=== PATIENT | female | born 1950 | race Caucasian/White ===

== ENCOUNTER 2016-10-27 21:45 | Observation (INO) ==
[2016-10-27] MEDS ORDERED: Aspirin 81 MG TAB.CHEW PO ONE (21:54)
[2016-10-27] MEDS: Nitroglycerin 0.4 MG TAB.SUBL SL ONE ×3 (22:05→22:32)
--- NOTE | 2016-10-27 22:16 | Emergency Department Note ---
Disposition Clinical Impression: Chest pain Qualifiers: Chest pain type: unspecified Qualified Code(s): R07.9 - Chest pain, unspecified Disposition: Admitted As Inpatient Condition: Good Referrals: NO,PCP [Non-Partnered Physician] - Forms: ED Satisfaction Letter Time of Disposition: 22:32 Chest Pain HPI - General Chief Complaint: ED Chest Pain Stated Complaint: chest pain Time Seen by Provider: 10/27/16 21:53 Source: patient, family Mode of arrival: ambulatory Limitations: no limitations Vital Signs Reviewed: Yes Nursing Notes Reviewed: Yes - History of Present Illness HPI Narrative: Patient presents to the emergency department with a four-hour history of left- sided chest pain radiating to her left arm that started from rest. Mild increased dyspnea from baseline. She denies other symptoms other than headache. No history of coronary artery disease. Pt complaint: chest pain Onset (ago): hour(s) Duration: constant Onset: during rest Pain Location: left chest Severity: moderate Severity scale (1-10): 8 Quality: aching Pain Radiation: LUE Improves with: nothing Worsens with: nothing Associated symptoms: Reports: other (Headache) Treatments prior to arrival chest pain: none - Related Data On Oral Contraceptives: No Home Medications Medication Instructions Recorded Confirmed GlipiZIDE [Glucotrol] 10 mg PO DAILY 07/15/15 10/27/16 Insulin Glargine,Hum.rec.anlog 28 unit SQ HS 07/15/15 10/27/16 [Lantus Solostar] Levothyroxine [Synthroid] 88 mcg PO DAILY 07/15/15 10/27/16 Lisinopril [Zestril] 10 mg PO DAILY 07/15/15 10/27/16 Ibuprofen [Motrin] 600 mg PO BID PRN 06/30/16 10/27/16 Ranitidine HCl [Zantac 75] 75 mg PO DAILY 10/27/16 10/27/16 Allergies Allergy/AdvReac Type Severity Reaction Status Date / Time codeine Allergy Mild Nausea Verified 10/27/16 21:46 All systems ED: reviewed and negative except as stated. Constitutional: Reports: as per HPI Eyes: Reports: as per HPI ENT ED: Reports: as per HPI Cardiovascular: Reports: chest pain Respiratory: Reports: dyspnea Gastrointestinal: Reports: as per HPI Genitourinary: Reports: as per HPI Musculoskeletal: Reports: as per HPI Integumentary: Reports: as per HPI Neurological: Reports: headache Psychiatric: Reports: as per HPI Endocrine: Reports: as per HPI Hematological/Lymphatic: Reports: as per HPI Allergic/Immunologic: Reports: as per HPI Chest Pain PMH - Past Medical History Medical history: Reports: arthritis, COPD, diabetes, GERD, hyperlipidemia, hypertension, osteoporosis, thyroid disease, other Surgical history: Reports: cataract, cholecystectomy, hysterectomy, orthopedic, other, JAY/BSO, thyroidectomy, other (Tubal ligation, bilateral.) Psychiatric history: Reports: no psych history 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 - Social History Smoking Status: Current every day smoker Alcohol use: Reports: none Drug use: Reports: none Physical Exam - General Limitations: no limitations General appearance: alert - Head Head exam: atraumatic - Eye Eye exam: Present: normal appearance - ENT ENT exam: normal exam - Neck Neck exam: Present: normal inspection, full ROM - Chest Chest inspection: Present: normal inspection, symmetric chest wall rise - Respiratory Respiratory exam: Present: other (Mild expiratory rhonchi) - Cardiovascular Cardiovascular exam: Present: regular rate, normal rhythm, normal heart sounds - Abdominal Exam Abdominal exam: Present: soft, Non-Tender - Rectal Exam Rectal exam: Present: deferred - Extremities Exam Extremities exam: Present: other (Chronic skin changes to her distal lower extremity is bilaterally) - Neurological Exam Neurological exam: Present: alert, oriented X3, CN II-XII intact - Psychiatric Psychiatric exam: Present: normal affect, normal mood - Skin Skin exam: Present: warm, dry, intact Course Course Narrative: Patient with a known history of COPD and diabetes presents the emergency department with 4 hours of left-sided chest pain radiating to her left upper extremity. EKG reveals no acute ST segment elevation. Workup including chest x -ray and labs initiated. - Reevaluation(s) Reevaluation #1: Dr. Blankenship accepts. Recs Lipitor and insulin coverage Vital Signs Temperature 98.9 F 10/27/16 21:47 Pulse Rate 106 10/27/16 21:47 Respiratory Rate 20 10/27/16 21:47 Blood Pressure 157/74 10/27/16 21:47 O2 Sat by Pulse Oximetry 95 10/27/16 21:47 Temperature 98.9 F 10/27/16 21:47 Pulse Rate 93 10/27/16 22:32 Respiratory Rate 16 10/27/16 22:32 Blood Pressure 113/57 10/27/16 22:32 O2 Sat by Pulse Oximetry 95 10/27/16 22:32 Oxygen Delivery Oxygen Delivery Room Air Chest Pain - Medical Records Medical records reviewed: Yes I reviewed the patient's medical records. - Lab Data Lab results reviewed: Yes I reviewed the patient's lab results. Result diagrams: 10/27/16 22:11 10/27/16 22:11 Lab Results 10/27/16 10/27/16 10/27/16 Range/Units 22:11 22:11 22:11 WBC 9.7 (4.3-11.1) K/mcL RBC 4.07 (3.82-4.97) M/mcL Hgb 11.6 (11.5-15.4) g/dL Hct 35.0 L (35.3-44.9) % MCV 86.0 (83.0-100.0) fL MCH 28.5 (28.0-33.3) pg MCHC 33.1 (31.6-35.5) g/dL RDW 13.4 (11.5-14.5) % Plt Count 274 (140-400) K/mcL MPV 9.1 L (9.4-12.4) fL Immature Gran % 0.4 (0-4) % Seg Neutrophils % 56.5 % Lymphocytes % 32.6 % Monocytes % 8.1 % Eosinophils % 1.6 % Basophils % 0.8 % Neutrophils # 5.5 (1.6-8.9) K/mcL Lymphocytes # 3.2 (0.6-4.6) K/mcL Monocytes # 0.8 (0.0-1.3) K/mcL Eosinophils # 0.2 (0.0-0.6) K/mcL Basophils # 0.1 (0.0-0.2) K/mcL PT 13.2 H (9.4-12.1) Seconds INR 1.2 APTT 29.9 (26.0-36.0) Seconds Sodium 135 L (136-145) mEq/L Potassium 3.8 (3.5-4.5) mEq/L Chloride 101 (98-109) mEq/L Carbon Dioxide 22 (19-29) mEq/L BUN 13 (7-20) mg/dL Creatinine 0.78 (0.57-1.11) mg/dL Est GFR ( Amer) > 60 (> 60) Est GFR (Non-Af Amer) > 60 (> 60) BUN/Creatinine Ratio 17 (6-26) Glucose 317 H (70-99) mg/dL Calculated Osmolality 292 (280-300) Calcium 8.5 L (8.6-10.8) mg/dL Troponin I (0-0.03) ng/mL 10/27/16 Range/Units 22:11 WBC (4.3-11.1) K/mcL RBC (3.82-4.97) M/mcL Hgb (11.5-15.4) g/dL Hct (35.3-44.9) % MCV (83.0-100.0) fL MCH (28.0-33.3) pg MCHC (31.6-35.5) g/dL RDW (11.5-14.5) % Plt Count (140-400) K/mcL MPV (9.4-12.4) fL Immature Gran % (0-4) % Seg Neutrophils % % Lymphocytes % % Monocytes % % Eosinophils % % Basophils % % Neutrophils # (1.6-8.9) K/mcL Lymphocytes # (0.6-4.6) K/mcL Monocytes # (0.0-1.3) K/mcL Eosinophils # (0.0-0.6) K/mcL Basophils # (0.0-0.2) K/mcL PT (9.4-12.1) Seconds INR APTT (26.0-36.0) Seconds Sodium (136-145) mEq/L Potassium (3.5-4.5) mEq/L Chloride (98-109) mEq/L Carbon Dioxide (19-29) mEq/L BUN (7-20) mg/dL Creatinine (0.57-1.11) mg/dL Est GFR ( Amer) (> 60) Est GFR (Non-Af Amer) (> 60) BUN/Creatinine Ratio (6-26) Glucose (70-99) mg/dL Calculated Osmolality (280-300) Calcium (8.6-10.8) mg/dL Troponin I 0.00 (0-0.03) ng/mL - Radiology Data Radiology results reviewed: Yes I reviewed the patient's radiology results. - EKG Data EKG attestation: Yes I reviewed and interpreted this EKG. EKG results narrative: Normal sinus rhythm 99 bpm [place] 151 QRS 94 QT/QTC 331/387. No acute ST segment elevation. Heart Score - Score History: Moderately Suspicious EKG: Normal Age: 45-65 Risk Factors: 1-2 risk factors Troponin: Less than normal limit HEART Score Total: 3
[2016-10-27 22:18] LABS: Hemoglobin 11.6 g/dL (11.5-15.4); Immature Granulocytes % 0.4 % (0-4); Lymphocytes % 32.6 %; Mean Corpuscular HGB Conc 33.1 g/dL (31.6-35.5); Mean Corpuscular Hemoglobin 28.5 pg (28.0-33.3); Mean Platelet Volume 9.1 fL (9.4-12.4); Monocytes % 8.1 %; Platelet Count 274 K/mcL (140-400); Red Blood Count 4.07 M/mcL (3.82-4.97); Red Cell Distribution Width 13.4 % (11.5-14.5); Segmented Neutrophils % 56.5 %
[2016-10-27 22:19] LABS: Basophils # 0.1 K/mcL (0.0-0.2); Basophils % 0.8 %; Eosinophils # 0.2 K/mcL (0.0-0.6); Eosinophils % 1.6 %; Lymphocytes # 3.2 K/mcL (0.6-4.6); Monocytes # 0.8 K/mcL (0.0-1.3); Neutrophils # 5.5 K/mcL (1.6-8.9)
[2016-10-27 22:25] LABS: INR 1.2; Prothrombin Time 13.2 Seconds (9.4-12.1)
[2016-10-27 22:28] LABS: Activated Partial Thrombo Time 29.9 Seconds (26.0-36.0)
[2016-10-27 22:30] LABS: BUN/Creatinine Ratio 17 (6-26); Blood Urea Nitrogen 13 mg/dL (7-20); Calcium 8.5 mg/dL (8.6-10.8); Carbon Dioxide 22 mEq/L (19-29); Chloride 101 mEq/L (98-109); Glucose 317 mg/dL (70-99); Osmolality,Calculated 292 (280-300); Potassium 3.8 mEq/L (3.5-4.5); Sodium 135 mEq/L (136-145); eGFR For African Americans > 60 (> 60); eGFR For Non-African Americans > 60 (> 60)
[2016-10-27] MEDS ORDERED: Insulin LISPRO 300 UNITS/3 ML VIAL SQ ONE (22:59)
[2016-10-27 23:56] VITALS: BP 133/70
--- NOTE | 2016-10-28 01:39 | Discharge Summary ---
Date of Encounter: 10/28/16 Time of Encounter: 01:05 - Discharge Diagnosis (1) Acute chest wall pain Priority: Primary Status: Acute - Discharge Medications Home Medications: GlipiZIDE [Glucotrol] 10 mg PO DAILY 07/15/15 [History] Insulin Glargine,Hum.rec.anlog [Lantus Solostar] 28 unit SQ HS 07/15/15 [History ] Levothyroxine [Synthroid] 88 mcg PO DAILY 07/15/15 [History] Lisinopril [Zestril] 10 mg PO DAILY 07/15/15 [History] Ibuprofen [Motrin] 600 mg PO BID PRN 06/30/16 [History] Ranitidine HCl [Zantac 75] 75 mg PO DAILY 10/27/16 [History] Allergies/Adverse Reactions: Allergies codeine Allergy (Mild, Verified 10/27/16 21:46) Nausea Date of admission: 10/27/16 23:12 Primary care physician: Jarrett Hickman MD Consults: Jessie. Discharging clinician: Travis Roldan Anticipated date of discharge: 10/28/16 - Patient Status Disposition: Home, Self-Care Condition: Good Overall status at discharge: patient is back to baseline - Discharge Instructions Instructions: Chest Pain (DC) Follow Up With: Jarrett Hickman MD [Primary Care Provider] - - Diet and Activity Activity: resume usual activities as tolerated Diet: low fat, low cholesterol, low salt diet Hospital course: Ms. Nava is a 65 year old female - Time Spent with Patient Total time spent providing and/or coordinating discharge services: - Constitutional Vitals: Temp Pulse Resp BP Pulse Ox 97.6 F 81 17 133/70 96 10/27/16 23:56 10/27/16 23:56 10/27/16 23:56 10/27/16 23:56 10/27/16 23:56
--- NOTE | 2016-10-28 01:40 | Internal Medicine Consult Note ---
Date of Encounter: 10/28/16 Time of Encounter: 01:15 Internal Medicine - CN: HPI - Data of Consult Patient: new to practice Consult date: 10/28/16 Requesting Physician: Nettie Larose - Consult Narrative Reason for consult: chest pain History of present illness: Ms. Nvaa is a 65 year old female with medical history significant for COPD/ emphysema, musculoskelteal chest with a non-ischemic cardiac work-up presents after a development of chest pain and headache at about 6:00pm yesterday. The pain was substernal, and left -sdied and radiated to her left shoulder and inner part of her left upper arm. The pain does cause mild dyspnea, but she says it is more out of fear. She has baseline dypsnea form COPD EMPHYSEMA. No cough, no diaphoresis, dizziness or palpitation, no associated nausea or vomiting. The pain has been intermittent. It is aggravated by deep breathing, and she subconsciously hold her breat out of fear of not aggravating the pain. She was worked up in December 2015 with CXR, EKG, 2D ECHO and a non-ischemic stress test. She thinks the pain is like it felt that time. She has no history of CAD. She is DNRCCA as per discussion, she nominates her , Kenrick Nava ([phone], ) as her NOK/POA. 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 ROS: A 10-point ROS was performed, positives and relevant negatives are detailed , system-symptoms not mentioned are assumed negative unless otherwise stated. Vital Signs Temperature 98.9 F 10/27/16 21:47 Pulse Rate 106 10/27/16 21:47 Respiratory Rate 20 10/27/16 21:47 Blood Pressure 157/74 10/27/16 21:47 O2 Sat by Pulse Oximetry 95 10/27/16 21:47 Temperature 98.9 F 10/27/16 21:47 Pulse Rate 93 10/27/16 22:32 Respiratory Rate 16 10/27/16 22:32 Blood Pressure 113/57 10/27/16 22:32 O2 Sat by Pulse Oximetry 95 10/27/16 22:32 O/E: Not in distress, not pale, anicteric, afebrile,acyanotic, non-ill, non- toxic looking. HEENT: Trachea is central, no cervical or jugular lymphadenopathy Chest: CTAB. Tenderness over the left chest wall underneath breast. Pain reproducible by palpation and deep inspiration, most tender in the mid clavicualar area over the 4th rib. Heart:rrr, hs1/2 Abdomen: non-distended,soft, non-tender, no masses. 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 Extremities: no pedal normal pedal pulses, no calf tenderness SKIN: No active skin lesion Lab Results 10/27/16 10/27/16 10/27/16 Range/Units 22:11 22:11 22:11 WBC 9.7 (4.3-11.1) K/mcL RBC 4.07 (3.82-4.97) M/mcL Hgb 11.6 (11.5-15.4) g/dL Hct 35.0 L (35.3-44.9) % MCV 86.0 (83.0-100.0) fL MCH 28.5 (28.0-33.3) pg MCHC 33.1 (31.6-35.5) g/dL RDW 13.4 (11.5-14.5) % Plt Count 274 (140-400) K/mcL MPV 9.1 L (9.4-12.4) fL Immature Gran % 0.4 (0-4) % Seg Neutrophils % 56.5 % Lymphocytes % 32.6 % Monocytes % 8.1 % Eosinophils % 1.6 % Basophils % 0.8 % Neutrophils # 5.5 (1.6-8.9) K/mcL Lymphocytes # 3.2 (0.6-4.6) K/mcL Monocytes # 0.8 (0.0-1.3) K/mcL Eosinophils # 0.2 (0.0-0.6) K/mcL Basophils # 0.1 (0.0-0.2) K/mcL PT 13.2 H (9.4-12.1) Seconds INR 1.2 APTT 29.9 (26.0-36.0) Seconds Sodium 135 L (136-145) mEq/L Potassium 3.8 (3.5-4.5) mEq/L Chloride 101 (98-109) mEq/L Carbon Dioxide 22 (19-29) mEq/L BUN 13 (7-20) mg/dL Creatinine 0.78 (0.57-1.11) mg/dL Est GFR ( Amer) > 60 (> 60) Est GFR (Non-Af Amer) > 60 (> 60) BUN/Creatinine Ratio 17 (6-26) Glucose 317 H (70-99) mg/dL Calculated Osmolality 292 (280-300) Calcium 8.5 L (8.6-10.8) mg/dL Troponin I (0-0.03) ng/mL 10/27/16 Range/Units 22:11 WBC (4.3-11.1) K/mcL RBC (3.82-4.97) M/mcL Hgb (11.5-15.4) g/dL Hct (35.3-44.9) % MCV (83.0-100.0) fL MCH (28.0-33.3) pg MCHC (31.6-35.5) g/dL RDW (11.5-14.5) % Plt Count (140-400) K/mcL MPV (9.4-12.4) fL Immature Gran % (0-4) % Seg Neutrophils % % Lymphocytes % % Monocytes % % Eosinophils % % Basophils % % Neutrophils # (1.6-8.9) K/mcL Lymphocytes # (0.6-4.6) K/mcL Monocytes # (0.0-1.3) K/mcL Eosinophils # (0.0-0.6) K/mcL Basophils # (0.0-0.2) K/mcL PT (9.4-12.1) Seconds INR APTT (26.0-36.0) Seconds Sodium (136-145) mEq/L Potassium (3.5-4.5) mEq/L Chloride (98-109) mEq/L Carbon Dioxide (19-29) mEq/L BUN (7-20) mg/dL Creatinine (0.57-1.11) mg/dL Est GFR ( Amer) (> 60) Est GFR (Non-Af Amer) (> 60) BUN/Creatinine Ratio (6-26) Glucose (70-99) mg/dL Calculated Osmolality (280-300) Calcium (8.6-10.8) mg/dL Troponin I 0.00 (0-0.03) ng/mL EKG: Normal sinus rhythm 99 bpm normal intervals, No acute ST segment elevation or depression. CXR: No acute cardiopulmonary process. IMP Musculoskeletal chest pain (favor pectoral muscle pain over costocondritis), even much less likely mastalgia of left breast PLAN NSAIDs, she takes Ibuprofen already She has an appointment for mammogram scheduling on 11/06/2016 F/U with PCP. Discharge home. Past Med Surg Social Fam HX - Past Medical History Medical history: arthritis, COPD, diabetes, GERD, hyperlipidemia, hypertension, osteoporosis, thyroid disease, other Psychiatric history: no psych history - Past Surgical History Surgical History: cataract, cholecystectomy, hysterectomy, orthopedic, other, JAY/BSO, thyroidectomy, other (Tubal ligation, bilateral.) - Social History Smoking Status: Current every day smoker Smokeless Tobacco Status: No Alcohol use: none Drug use: none - Family History Father Hx Family Cardiac Disorders: Yes ([place], HTN) Hx Family Respiratory Disorders: Yes (Emphysema) Hx Family Cancer: No Hx Family GI Disorders: No Hx Family Endocrine Disorder: Yes (DM) Hx Family Neuromuscular Disorders: No Hx Family Neurologic Disorders: No Hx Family HEENT Disorders: No Hx Family Autoimmune Disorders: No Internal Medicine - CN: Meds GlipiZIDE [Glucotrol] 10 mg PO DAILY 07/15/15 [History] Insulin Glargine,Hum.rec.anlog [Lantus Solostar] 28 unit SQ HS 07/15/15 [History ] Levothyroxine [Synthroid] 88 mcg PO DAILY 07/15/15 [History] Lisinopril [Zestril] 10 mg PO DAILY 07/15/15 [History] Ibuprofen [Motrin] 600 mg PO BID PRN 06/30/16 [History] Ranitidine HCl [Zantac 75] 75 mg PO DAILY 10/27/16 [History] Allergies codeine Allergy (Mild, Verified 10/27/16 21:46) Nausea Internal Medicine - CN: Exam - Constitutional Vitals: Temp Pulse Resp BP Pulse Ox 97.6 F 81 17 133/70 96 10/27/16 23:56 10/27/16 23:56 10/27/16 23:56 10/27/16 23:56 10/27/16 23:56 Internal Medicine - CN: Reslt - Labs CBC & Chem 7: 10/27/16 22:11 10/27/16 22:11 - ABG Interpretation ABG results: PT/INR, D-dimer PT 13.2 Seconds (9.4-12.1) H 10/27/16 22:11 - Assessment and Plan (1) Acute chest wall pain Current Visit: No Status: Acute Consult Discharge Plan - Plan Instructions: Chest Pain (DC) Referrals: Jarrett Hickman MD [Primary Care Provider] -
--- NOTE | 2016-10-28 13:25 | Electrocardiograph Report ---
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
[2016-10-28] MEDS ORDERED: Insulin LISPRO 300 UNITS/3 ML VIAL SQ ONE (22:59)
== END 2016-10-28 02:15 | disposition home or self-care (01) ==
LOC: EMEROO 21:45 → 3BNU 21:45
PROVIDERS: ADMIT Internal Medicine; ATTEND Nurse Practitioner Family

== ENCOUNTER 2017-01-10 16:31 | Observation (INO) ==
--- NOTE | 2017-01-10 17:08 | Emergency Department Note ---
Disposition Clinical Impression: Pre-syncope, Chest pain of unknown etiology, COPD exacerbation Chest pain Qualifiers: Chest pain type: other chest pain Qualified Code(s): R07.89 - Other chest pain Disposition: Admitted As Inpatient Condition: Fair Time of Disposition: 20:43 Chest Pain HPI - General Chief Complaint: ED Chest Pain Stated Complaint: chest pain Time Seen by Provider: 01/10/17 16:36 Vital Signs Reviewed: Yes Nursing Notes Reviewed: Yes - History of Present Illness HPI Narrative: Patient is a 66-year-old female complains of chest pain decided to few hours ago sudden onset about 10 this intermittent with radiation across anterior chest wall and up both shoulders and down both left and right extremities. Worse with coughing, nothing makes better. When he last about a few seconds at a time. She has a history of COPD, diabetes mellitus. Patient smokes one pack a day, denies alcohol use, denies illicit drug use Surgical history cholecystectomy and appendectomy. - Related Data Home Medications Medication Instructions Recorded Confirmed GlipiZIDE [Glucotrol] 10 mg PO DAILY 07/15/15 01/10/17 Insulin Glargine,Hum.rec.anlog 28 unit SQ HS 07/15/15 01/10/17 [Lantus Solostar] Levothyroxine [Synthroid] 88 mcg PO DAILY 07/15/15 01/10/17 Lisinopril [Zestril] 10 mg PO DAILY 07/15/15 01/10/17 Ibuprofen [Motrin] 600 mg PO BID PRN 06/30/16 10/27/16 Ranitidine HCl [Zantac 75] 75 mg PO DAILY 10/27/16 01/10/17 Allergies Allergy/AdvReac Type Severity Reaction Status Date / Time codeine Allergy Mild Nausea Verified 10/27/16 21:46 All systems ED: reviewed and negative except as stated. Constitutional: Denies: fever, chills Eyes: Denies: vision change ENT ED: Denies: congestion Cardiovascular: Reports: chest pain. Denies: palpitations, edema Respiratory: Reports: cough. Denies: dyspnea, wheezes Gastrointestinal: Reports: nausea. Denies: abdominal pain, vomiting Genitourinary: Denies: urgency, dysuria Musculoskeletal: Denies: back pain, neck pain Integumentary: Denies: rash Neurological: Reports: headache, abnormal gait, vertigo. 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 Absent: scleral icterus, conjunctival injection, nystagmus - ENT ENT exam: normal exam, normal oropharynx, mucous membranes dry - Neck Neck exam: Present: normal inspection, full ROM, trachea midline. Absent: tenderness - Chest Chest inspection: Present: normal inspection, symmetric chest wall rise - Respiratory Respiratory exam: Present: normal lung sounds bilaterally, respiratory distress. Absent: wheezes - Cardiovascular Cardiovascular exam: Present: regular rate, normal rhythm - Abdominal Exam Abdominal exam: Present: soft, Non-Tender, normal bowel sounds. Absent: distention, guarding, rigidity - Extremities Exam Extremities exam: Present: normal inspection, full ROM, normal capillary refill. Absent: tenderness, pedal edema, calf tenderness - Expanded Lower Extremity Exam Neurovascular/Tendon exam: Present: normal capillary refill. Absent: pulse deficit, motor deficit, sensory deficit - Back Exam Back exam: Present: normal inspection, CVA tenderness (L). Absent: CVA tenderness (R) - Neurological Exam Neurological exam: Present: alert, oriented X3, CN II-XII intact. Absent: motor sensory deficit - Psychiatric Psychiatric exam: Present: normal affect, normal mood - Skin Skin exam: Present: warm, dry, intact. Absent: rash Course - Reevaluation(s) Reevaluation #1: Mrs. Naav is a 66-year-old female complains of chest pain decided to few hours ago sudden onset about 10 this intermittent with radiation across anterior chest wall and up both shoulders and down both left and right extremities. Worse with coughing, nothing makes better. When he last about a few seconds at a time. She has a history of COPD, diabetes mellitus. Patient has clear lung sounds on auscultation and chest wall tenderness reproducible to palpation. Patient's vital signs are all in normal ranges. Patient's EKG shows sinus rhythm with no signs of ischemia. Assessment: ACS and PR, PE, COPD exacerbation, aortic dissection, esophageal rupture, pneumonia, UTI, intercostal rib is function 2/2 worse Plan for chest pain workup to include chest x-ray, CBC, BMP, troponin, EKG. Start patient on 1 L normal saline for dehydration, aspirin and Zofran for nausea. Time: 17:10 Reevaluation #2: Patient was rechecked. Patient's pain still is name. Patient has not yet received her meds. Patient will receive Zofran, aspirin and nitroglycerin and reassessment. Patient heart score is 4 Time: 18:30 Reevaluation #3: DuoNeb complete. Patient states she is feeling better. Patient now complains that she is having chest pressure. We will start patient on Solu-Medrol 125 mg and nitroglycerin 0.4 sublingual Time: 19:40 - Consultations Consultation #1: Dr. Messina accepted Pt for admission Time: 20:42 Vital Signs Pulse Rate 87 01/10/17 17:09 Respiratory Rate 20 01/10/17 17:09 Blood Pressure 132/67 01/10/17 17:09 Temperature 97.5 F L 01/10/17 21:53 Pulse Rate 86 01/10/17 21:53 Respiratory Rate 16 01/10/17 21:53 Blood Pressure 114/64 01/10/17 21:53 O2 Sat by Pulse Oximetry 96 01/10/17 21:53 Oxygen Delivery Oxygen Delivery Nasal Cannula Chest Pain - Medical Records Medical records reviewed: Yes I reviewed the patient's medical records. - Lab Data Lab results reviewed: Yes I reviewed the patient's lab results. Lab results narrative: Short CBC 01/10/17 Range/Units 17:15 WBC 8.2 (4.3-11.1) K/mcL Hgb 11.7 (11.5-15.4) g/dL Hct 35.8 (35.3-44.9) % Plt Count 288 (140-400) K/mcL Neutrophils # 4.8 (1.6-8.9) K/mcL BMP 01/10/17 Range/Units 17:15 Sodium 135 L (136-145) mEq/L Potassium 4.4 (3.5-4.5) mEq/L Chloride 101 (98-109) mEq/L Carbon Dioxide 25 (19-29) mEq/L BUN 14 (7-20) mg/dL Creatinine 0.78 (0.57-1.11) mg/dL Glucose 348 H (70-99) mg/dL Calcium 8.6 (8.6-10.8) mg/dL Cardiac Enzymes 01/10/17 Range/Units 17:15 Troponin I 0.00 (0-0.03) ng/mL Result diagrams: 01/10/17 17:15 01/10/17 17:15 Lab Results 01/10/17 01/10/17 01/10/17 Range/Units 17:15 17:15 17:15 WBC 8.2 (4.3-11.1) K/mcL RBC 4.12 (3.82-4.97) M/mcL Hgb 11.7 (11.5-15.4) g/dL Hct 35.8 (35.3-44.9) % MCV 86.9 (83.0-100.0) fL MCH 28.4 (28.0-33.3) pg MCHC 32.7 (31.6-35.5) g/dL RDW 13.3 (11.5-14.5) % Plt Count 288 (140-400) K/mcL MPV 9.5 (9.4-12.4) fL Immature Gran % 0.2 (0-4) % Seg Neutrophils % 58.5 % Lymphocytes % 30.4 % Monocytes % 8.7 % Eosinophils % 1.5 % Basophils % 0.7 % Neutrophils # 4.8 (1.6-8.9) K/mcL Lymphocytes # 2.5 (0.6-4.6) K/mcL Monocytes # 0.7 (0.0-1.3) K/mcL Eosinophils # 0.1 (0.0-0.6) K/mcL Basophils # 0.1 (0.0-0.2) K/mcL Immature Plt Fraction 2.8 (1.1-6.1) % PT 12.9 H (9.4-12.1) Seconds INR 1.2 APTT 29.9 (26.0-36.0) Seconds Sodium 135 L (136-145) mEq/L Potassium 4.4 (3.5-4.5) mEq/L Chloride 101 (98-109) mEq/L Carbon Dioxide 25 (19-29) mEq/L BUN 14 (7-20) mg/dL Creatinine 0.78 (0.57-1.11) mg/dL Est GFR ( Amer) > 60 (> 60) Est GFR (Non-Af Amer) > 60 (> 60) BUN/Creatinine Ratio 18 (6-26) Glucose 348 H (70-99) mg/dL Est Mean Plasma Glucose mg/dl Hemoglobin A1c ( - 5.6) % Calculated Osmolality 294 (280-300) Calcium 8.6 (8.6-10.8) mg/dL Troponin I (0-0.03) ng/mL 01/10/17 01/10/17 Range/Units 17:15 17:15 WBC (4.3-11.1) K/mcL RBC (3.82-4.97) M/mcL Hgb (11.5-15.4) g/dL Hct (35.3-44.9) % MCV (83.0-100.0) fL MCH (28.0-33.3) pg MCHC (31.6-35.5) g/dL RDW (11.5-14.5) % Plt Count (140-400) K/mcL MPV (9.4-12.4) fL Immature Gran % (0-4) % Seg Neutrophils % % Lymphocytes % % Monocytes % % Eosinophils % % Basophils % % Neutrophils # (1.6-8.9) K/mcL Lymphocytes # (0.6-4.6) K/mcL Monocytes # (0.0-1.3) K/mcL Eosinophils # (0.0-0.6) K/mcL Basophils # (0.0-0.2) K/mcL Immature Plt Fraction (1.1-6.1) % PT (9.4-12.1) Seconds INR APTT (26.0-36.0) Seconds Sodium (136-145) mEq/L Potassium (3.5-4.5) mEq/L Chloride (98-109) mEq/L Carbon Dioxide (19-29) mEq/L BUN (7-20) mg/dL Creatinine (0.57-1.11) mg/dL Est GFR ( Amer) (> 60) Est GFR (Non-Af Amer) (> 60) BUN/Creatinine Ratio (6-26) Glucose (70-99) mg/dL Est Mean Plasma Glucose 232 mg/dl Hemoglobin A1c 9.7 H ( - 5.6) % Calculated Osmolality (280-300) Calcium (8.6-10.8) mg/dL Troponin I 0.00 (0-0.03) ng/mL - Radiology Data Radiology results reviewed: Yes I reviewed the patient's radiology results. Chest X-Ray 01/10/17 16:51 IMPRESSION: 1. No radiographic finding to account for patient's chest pain. D/ / Cedrick Zheng MD / Cderick Zheng MD Interpreting Provider: Cedrick Zheng MD - EKG Data EKG attestation: Yes I reviewed and interpreted this EKG. EKG results narrative: EKG taken 03/12/2017 1639 hrs. shows a sinus rhythm with a ventricular rate of [address] elevation or depression in leads QS wave in her QT prolongation and an leads. Compared to previous EKG taken 10/27/2016 shows a sinus rhythm as well with a ventricular rate of 99 bpm no QRS widening QT prolongation or ST elevations depressions in the least. Heart Score - Score History: Slightly Suspicious EKG: Normal Age: Greater than 65 Risk Factors: Equal/Greater than 3 risk factor or history of atherosclerotic disease Troponin: Less than normal limit HEART Score Total: 4
[2017-01-10 17:22] LABS: Basophils # 0.1 K/mcL (0.0-0.2); Basophils % 0.7 %; Eosinophils # 0.1 K/mcL (0.0-0.6); Eosinophils % 1.5 %; Hematocrit 35.8 % (35.3-44.9); Hemoglobin 11.7 g/dL (11.5-15.4); Immature Granulocytes % 0.2 % (0-4); Immature Platelets 2.8 % (1.1-6.1); Lymphocytes # 2.5 K/mcL (0.6-4.6); Lymphocytes % 30.4 %; Mean Corpuscular HGB Conc 32.7 g/dL (31.6-35.5); Mean Corpuscular Hemoglobin 28.4 pg (28.0-33.3); Mean Corpuscular Volume 86.9 fL (83.0-100.0); Mean Platelet Volume 9.5 fL (9.4-12.4); Monocytes # 0.7 K/mcL (0.0-1.3); Monocytes % 8.7 %; Neutrophils # 4.8 K/mcL (1.6-8.9); Platelet Count 288 K/mcL (140-400); Red Blood Count 4.12 M/mcL (3.82-4.97); Red Cell Distribution Width 13.3 % (11.5-14.5); Segmented Neutrophils % 58.5 %
[2017-01-10 17:27] LABS: INR 1.2; Prothrombin Time 12.9 Seconds (9.4-12.1)
[2017-01-10 17:30] LABS: Activated Partial Thrombo Time 29.9 Seconds (26.0-36.0)
[2017-01-10 17:36] LABS: BUN/Creatinine Ratio 18 (6-26); Blood Urea Nitrogen 14 mg/dL (7-20); Calcium 8.6 mg/dL (8.6-10.8); Carbon Dioxide 25 mEq/L (19-29); Chloride 101 mEq/L (98-109); Glucose 348 mg/dL (70-99); Osmolality,Calculated 294 (280-300); Potassium 4.4 mEq/L (3.5-4.5); Sodium 135 mEq/L (136-145); eGFR For African Americans > 60 (> 60); eGFR For Non-African Americans > 60 (> 60)
--- NOTE | 2017-01-10 18:30 | Emergency Department Note ---
START Narrative - START START: For this encounter, I have reviewed the resident, BREAD DISTRIBUTOR, or PA documentation, treatment plan, and medical decision making; and I have had face to face time with this patient. 66 yo female presents with concerns of chest pain. Pt states pain started 3 hours prior to arrival. Patient describes the pain as a constant fluctuating pressure punctuated by sharp stabbing pain. bilateral arm and upper chest. coughing and palpation make it worse. Negative stress test last year. No history of cardiac disease but has Htn, HLD, DM and history of tobacco use. + lightheadedness with standing. Pt has ttp of the chest wall. Lungs CTAB. Abd nontender to palpation, ECG NSR rate of 87. Patient has a heart score of 4 and will be admitted to the hospital for further care and evaluation of chest pain to rule out ACS.
[2017-01-10] MEDS ORDERED: Ondansetron 4 MG/2 ML VIAL IV ONE (18:33)
[2017-01-10] MEDS ORDERED: 0.9 % Sodium Chloride 1,000 ML IVC ONE (18:43)
[2017-01-10] MEDS ORDERED: Ipratropium/Albuterol Neb 3 ML IH ONE (18:53)
[2017-01-10] MEDS: Aspirin 81 MG TAB.CHEW PO ONE (18:56)
[2017-01-10] MEDS: Nitroglycerin 0.4 MG TAB.SUBL SL PRN ×2 (20:20→20:25)
--- NOTE | 2017-01-10 20:47 | Internal Med History&Physical ---
Date of Encounter: 01/10/17 Time of Encounter: 20:42 Assessment and Plan (1) COPD (chronic obstructive pulmonary disease) Current visit: No Status: Chronic no active wheezing Qualifiers: COPD type: emphysema Emphysema type: unspecified Qualified Code(s): J43.9 - Emphysema, unspecified (2) Chest pain Current visit: No Status: Acute chest pain needs further evaluation has had cardiac cath 3 years ago no intervention nuclear 12/2015 negative for ischemia , echo ef 65% will repeat nuclear stress in am Qualifiers: Chest pain type: unspecified Qualified Code(s): R07.9 - Chest pain, unspecified (3) Obesity (BMI 30.0-34.9) Current visit: No Status: Chronic chronic (4) Diabetes Current visit: No Status: Chronic resume home meds and start on sliding scale Qualifiers: Diabetes mellitus type: type 2 Diabetes mellitus complication status: with neurologic complications Diabetes mellitus complication detail: with unspecified neuropathy Diabetes mellitus 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 insulin use: 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 Nava is a 66 year old female Patient with history of chest pain . Had cardiac cath 3 years ago ago which was unremarkable no intervention was done, She was also admitted last year December 2015 . had nuclear stress test done which were negative for ischemia and echo cardiogram EF 65% Also has a history of COPD, diabetes, smoking history, obesity, hypertension, hypothyroidism, hypercholesterol and obstructive sleep apnea Patient presents to emergency room with chest pain describes as sharp pain going across both arms and down both arms worse with coughing . denies symptoms of shortness of breath or sweats. symptoms very Similar to previous chest pains. She is now chest pain-free EKG is normal troponin so far is negative Past Med Surg Social Fam HX - Past Medical History Medical history: arthritis, COPD, diabetes, GERD, hyperlipidemia, hypertension, osteoporosis, thyroid disease, other Psychiatric history: no psych history - Past Surgical History Surgical History: cataract, cholecystectomy, hysterectomy, orthopedic, other, JAY/BSO, thyroidectomy, other (Tubal ligation, bilateral.) - Social History Smoking Status: Current every day smoker Smokeless Tobacco Status: No Alcohol use: none Drug use: none - Family History Father Hx Family Cardiac Disorders: Yes (VA, HTN) Hx Family Respiratory Disorders: Yes (Emphysema) Hx Family Cancer: No Hx Family GI Disorders: No Hx Family Endocrine Disorder: Yes (DM) Hx Family Neuromuscular Disorders: No Hx Family Neurologic Disorders: No Hx Family HEENT Disorders: No Hx Family Autoimmune Disorders: No Internal Medicine - H&P: Meds GlipiZIDE [Glucotrol] 10 mg PO DAILY 07/15/15 [History] Insulin Glargine,Hum.rec.anlog [Lantus Solostar] 28 unit SQ HS 07/15/15 [History ] Levothyroxine [Synthroid] 88 mcg PO DAILY 07/15/15 [History] Lisinopril [Zestril] 10 mg PO DAILY 07/15/15 [History] Ibuprofen [Motrin] 600 mg PO BID PRN 06/30/16 [History] Ranitidine HCl [Zantac 75] 75 mg PO DAILY 10/27/16 [History] Allergies codeine Allergy (Mild, Verified 10/27/16 21:46) Nausea All Systems PM: A 10-system review of systems was performed and is negative for pertinent findings except as documented above in the HPI. - Constitutional Constitutional: no chills, no fever(s), no night sweats - EENT Eyes: no change in vision, no discharge, no pain, no photophobia Ears: no ear discharge, no ear pain, no tinnitus Nose, mouth and throat: no dysphagia, no nasal discharge, no neck pain, no sore throat - Cardiovascular Cardiovascular ROS IM: chest pain, no diaphoresis, no dyspnea, no lightheadedness, no palpitations, no syncope - Respiratory Respiratory: dyspnea - Gastrointestinal Gastrointestinal: no abdominal pain, no diarrhea, no hematemesis, no hematochezia, no melena, no nausea, no vomiting - Genitourinary Genitourinary: no change in urinary stream, no dysuria, no flank pain, no hematuria - Musculoskeletal Musculoskeletal ROS IM: no numbness, no tingling - Integumentary Integumentary IM: no rash, no unusual bruising - Constitutional Vitals: Temp Pulse Resp BP Pulse Ox 98 F 86 20 122/58 96 01/10/17 17:14 01/10/17 20:26 01/10/17 20:26 01/10/17 20:26 01/10/17 20:21 General appearance: Present: A&O X 3 - Eye Eye exam: Present: PERRL, conjuntiva pink, sclera anicteric Pupils: Present: PERRL - Neck Neck exam general surgery: Present: supple, trachea midline. Absent: lymphadenopathy - Respiratory Respiratory exam: Present: CTAB. Absent: accessory muscle use, rales, rhonchi, wheezes - Cardiovascular Cardiovascular exam: Present: RRR, +S1, +S2. Absent: diastolic murmur, gallop, rubs, systolic murmur - GI/Abdominal GI/Abdominal exam: Present: normal bowel sounds, soft, no peritoneal signs. Absent: distended, tenderness - Extremities Exam Extremities exam: Present: warm, radial pulses palpable and symetrical. Absent : calf tenderness, cyanotic, pedal edema Internal Med - H&P Results - Labs CBC & Chem 7: 01/10/17 17:15 01/10/17 17:15
[2017-01-10] MEDS ORDERED: Naloxone 0.4 MG/ML INJ IVP PRN ×2 (20:53→20:55)
[2017-01-10] MEDS ORDERED: Ondansetron 4 MG/2 ML VIAL IVP PRN (20:55)
[2017-01-10] MEDS ORDERED: Ibuprofen 600 MG TABLET PO PRN (20:57)
[2017-01-10] MEDS ORDERED: *HR* Dextrose 50 % in Water (Syg) 50 ML SYRINGE IVP PRN (20:58)
[2017-01-10] MEDS ORDERED: Dextrose Gel 15 GM PO PRN ×2 (20:58)
[2017-01-10] MEDS ORDERED: D5% in Water 1,000 ML IVC PRN (20:58)
[2017-01-10] MEDS ORDERED: 0.9 % Sodium Chloride 1,000 ML IVC SCH ×2 (21:00)
[2017-01-10] MEDS ORDERED: Insulin LISPRO 300 UNITS/3 ML VIAL SQ SCH (21:00)
[2017-01-10] MEDS ORDERED: Insulin DETEMIR 100 UNIT/ML X5UNITS SQ SCH (21:15)
[2017-01-10 21:22] LABS: Hemoglobin A1C 9.7 %
[2017-01-10] MEDS: *HR* Morphine 2 MG/ML SYRINGE IVP PRN (23:46)
[2017-01-11 03:18] LABS: Basophils # 0.1 K/mcL (0.0-0.2); Basophils % 0.7 %; Eosinophils # 0.1 K/mcL (0.0-0.6); Eosinophils % 1.8 %; Hematocrit 32.6 % (35.3-44.9); Hemoglobin 10.7 g/dL (11.5-15.4); Immature Granulocytes % 0.3 % (0-4); Immature Platelets 2.2 % (1.1-6.1); Lymphocytes # 2.7 K/mcL (0.6-4.6); Lymphocytes % 35.9 %; Mean Corpuscular HGB Conc 32.8 g/dL (31.6-35.5); Mean Corpuscular Hemoglobin 28.8 pg (28.0-33.3); Mean Corpuscular Volume 87.9 fL (83.0-100.0); Mean Platelet Volume 9.3 fL (9.4-12.4); Monocytes # 0.8 K/mcL (0.0-1.3); Monocytes % 10.1 %; Neutrophils # 3.9 K/mcL (1.6-8.9); Platelet Count 248 K/mcL (140-400); Red Blood Count 3.71 M/mcL (3.82-4.97); Red Cell Distribution Width 13.5 % (11.5-14.5); Segmented Neutrophils % 51.2 %
[2017-01-11 03:31] LABS: BUN/Creatinine Ratio 16 (6-26); Blood Urea Nitrogen 14 mg/dL (7-20); Carbon Dioxide 26 mEq/L (19-29); Chloride 105 mEq/L (98-109); Potassium 3.8 mEq/L (3.5-4.5); Sodium 138 mEq/L (136-145); eGFR For African Americans > 60 (> 60)
[2017-01-11 03:32] LABS: Alanine Aminotransferase 13 Units/L (0-55); Albumin 2.8 g/dL (3.5-5.0); Albumin/Globulin Ratio 0.9 (1.1-2.2); Alkaline Phosphatase 76 Units/L (38-126); Aspartate Amino Transferase 13 Units/L (5-34); Bilirubin,Total 0.2 mg/dL (0.2-1.2); Calcium 7.9 mg/dL (8.6-10.8); Chol/HDL Ratio 3.8 (0-4.9); Cholesterol 160 mg/dL (< 200); Globulin 3.2 g/dL (2.4-3.5); Glucose 280 mg/dL (70-99); HDL Cholesterol 42 mg/dL (40-59); LDL Cholesterol,Calculated 100 mg/dL (0-99); Magnesium 1.8 mg/dL (1.6-2.6); Osmolality,Calculated 297 (280-300); Triglycerides 91 mg/dL (< 150); eGFR For Non-African Americans > 60 (> 60)
[2017-01-11] MEDS ORDERED: Regadenoson 0.4 MG/5 ML SYRINGE IVP ONE (06:39)
--- NOTE | 2017-01-11 07:05 | Electrocardiograph Report ---
[address] [address] Test Date: 2017-01-10 Pat Name: Emerald Nava Department: 104 Room: 3B Gender: F Dramatic Director: ELIJAH : 1950 Requested By: Jarrett Bryant Order Number: [id number] Reading MD: Sunday Perez MD Measurements Intervals [place] Rate: 87 P: 47 IA: 150 QRS: 30 QRSD: 94 T: 55 QT: 356 QTc: 401 Interpretive Statements SINUS RHYTHM Electronically Signed On 01-11-2017 7:03:44 EDT by Sunday Perez MD
[2017-01-11] MEDS ORDERED: *HR* GlipiZIDE 5 MG TABLET PO SCH (09:00)
[2017-01-11] MEDS ORDERED: Famotidine 20 MG TABLET PO SCH (09:00)
[2017-01-11] MEDS: Insulin LISPRO 300 UNITS/3 ML VIAL SQ SCH ×2 (09:23→12:07)
--- NOTE | 2017-01-11 10:33 | Nuclear Medicine Stress Report ---
Regadenoson Nuclear Stress Name: Emerald Torres February Date of Study: 01/11/2017 Date: 1950 Ht: 61.0 in Medical Record#: [id number] Age: 66 Wt: 166.0 lb Gender: Female Order #: [id number] Location: [facility] Room: [facility] Supervising Provider: Supriya Garcia CNP Reading Physician: Sunday Perez MD, [facility] Ordering Physician: Nettie Mckinney CNP Primary Care Physician: Jarrett Hickman MD Stress Technologist: Fawn Varner, ARNIE Nurse Transition: Livan Giron Indications: Chest Pain Impression: Perfusion imaging was negative for ischemia or infarct. SDS - 0 Pharmacologic ECG was negative for ischemia at the level of heart rate achieved. Patient had no chest pain with stress. No arrhythmias noted with stress. Gated EF = 69%. The LV is not dilated. There is no evidence of TID. History: Hypertension Diabetes History of Smoking Stress Test Summary: Stress Test Type: Pharmacologic Regadenoson 0.4mg/5ml given IV Baseline Information: Initial Heart Rate: 69 Blood Pressure: 122/64 Stress Information: Test Terminated Due to (primary): As per protocol Maximum Blood Pressure: 140/62 Maximum Heart Rate: 101 Percent Maximum Heart Rate Achieved: 66 Double Product: 21269 METS Reached: 1 Symptoms: No chest symptoms Nuclear Summary: SPECT myocardial perfusion imaging using Tc99m Sestamibi given intravenously was performed at rest and following cardiac stress testing. The resting images were obtained following initial dose of 10.9 mCi. Following stress an additional dose of 35.5 mCi was given at peak exercise or 30 seconds post regadenoson infusion. Medication Given: Time Medication Dose Units Route Findings: Stress Note * Resting ECG demonstrated normal sinus rhythm. * No baseline arrhythmias were noted. * Pharmacologic stress ECG is non diagnostic for ischemia due to failure to reach target heartrate. * No arrhythmias were noted during stress. * Patient had no chest pain during stress. Study Quality * Study quality is good. Gated EF > 70% * Gated EF > 70%. Gated EF % * Gated EF = 69%. Left Ventricle * The left ventricle is not dilated. NORMALS * Normal wall motion. * Normal segmental perfusion in stress. * Normal Segmental Perfusion in rest. Updated by Sunday Perez MD, FACC on 01/11/2017 10:28:45 AM electronically signed on 01/11/2017 10:30:12 AM with status of Final
[2017-01-11] MEDS: *HR* Morphine 2 MG/ML SYRINGE IVP PRN (11:30)
[2017-01-11 12:00] VITALS: BP 139/73
--- NOTE | 2017-01-11 12:27 | Discharge Summary ---
Date of Encounter: 01/11/17 Time of Encounter: 12:25 - Discharge Diagnosis (1) COPD (chronic obstructive pulmonary disease) Priority: Secondary Status: Chronic Comments: no active wheezing Qualifiers: COPD type: emphysema Emphysema type: unspecified Qualified Code(s): J43.9 - Emphysema, unspecified (2) Chest pain Priority: Primary Status: Acute Comments: resolved nuclear done today normal will discharge Qualifiers: Chest pain type: unspecified Qualified Code(s): R07.9 - Chest pain, unspecified (3) Obesity (BMI 30.0-34.9) Priority: Secondary Status: Chronic Comments: chronic (4) Diabetes Priority: Secondary Status: Chronic Comments: chronic Qualifiers: Diabetes mellitus type: type 2 Diabetes mellitus complication status: with neurologic complications Diabetes mellitus complication detail: with unspecified neuropathy Diabetes mellitus correction insulin use: without correction use Qualified Code(s): E11.40 - Type 2 diabetes mellitus with diabetic neuropathy, unspecified (5) HTN (hypertension) Priority: Secondary Status: Chronic Comments: well controlled Qualifiers: Hypertension type: essential hypertension Qualified Code(s): I10 - Essential (primary) hypertension (6) Hypothyroid Priority: Secondary Status: Chronic Comments: chronic Qualifiers: Hypothyroidism type: acquired Qualified Code(s): E03.9 - Hypothyroidism, unspecified - Discharge Medications Home Medications: GlipiZIDE [Glucotrol] 10 mg PO DAILY 07/15/15 [History] Insulin Glargine,Hum.rec.anlog [Lantus Solostar] 28 unit SQ HS 07/15/15 [History ] Lisinopril [Zestril] 10 mg PO DAILY 07/15/15 [History] Ibuprofen [Motrin] 600 mg PO BID PRN 06/30/16 [History] Ranitidine HCl [Zantac 75] 75 mg PO DAILY 10/27/16 [History] Aspirin 81 mg PO DAILY 01/11/17 [History] Levothyroxine [Synthroid] 125 mcg PO 0630 01/11/17 [History] Allergies/Adverse Reactions: Allergies codeine Allergy (Mild, Verified 01/11/17 10:36) Nausea Procedures/tests Complete & Pending: Procedures Performed prior 72 hours Category Date Time Status NM [place] perf SPECT multi [NM] Routine Exams 01/10/17 05:50 Taken SP pharm nuclear stress Routine Y 01/10/17 20:57 Completed Date of admission: 01/10/17 20:12 Primary care physician: Jarrett Hickman MD Discharging clinician: Justus Messina Anticipated date of discharge: 01/11/17 - Patient Status Disposition: Home, Self-Care Condition: Good Overall status at discharge: patient is back to baseline - Discharge Instructions - Diet and Activity Activity: increase activity as tolerated Diet: advance to your usual diet Hospital course: Ms. Nava is a 66 year old female - Time Spent with Patient Total time spent providing and/or coordinating discharge services: - Constitutional Vitals: Temp Pulse Resp BP Pulse Ox 97.7 F 80 16 139/73 96 01/11/17 11:55 01/11/17 11:55 01/11/17 11:55 01/11/17 11:55 01/11/17 11:55 General appearance: Present: A&O X 3
== END 2017-01-11 13:15 | disposition home or self-care (01) ==
LOC: 3BNU 16:31 → EMEROO 16:31 → 3BNU 21:32
PROVIDERS: ADMIT Internal Medicine Cardiovascular Disease; ATTEND Nurse Practitioner Family

== ENCOUNTER 2017-06-13 20:40 | Inpatient (IN) ==
--- NOTE | 2017-06-13 20:54 | Emergency Department Note ---
Disposition Clinical Impression: Numbness and tingling of right upper and lower extremity Cerebrovascular accident Qualifiers: CVA mechanism: other Qualified Code(s): I63.8 - Other cerebral infarction Disposition: Admitted As Inpatient Condition: Good Time of Disposition: 23:06 Neuro HPI - General Chief Complaint: ED Neuro Symptoms/Deficit Stated Complaint: Possible Stroke Time Seen by Provider: 06/13/17 20:48 Source: patient, EMS Mode of arrival: EMS Limitations: no limitations Nursing Notes Reviewed: Yes Vital Signs Reviewed: Yes - History of Present Illness HPI Narrative: 66-year-old female history of hypertension diabetes hypercholesterolemia presents to the ED via EMS for concern of stroke. Patient states she is been having some right-sided extremity numbness over the past 2 days worse today. Denies any weakness to either side. She feels like her right side faces burning. Denies any headache. Denies any changes in vision, recent fall or trauma. No facial droop or extremity drift. She takes 81 mg aspirin daily. Denies history of stroke. Patient is answering questions appropriately. She does not meet tPA qualifications at this time as she is well outside time frame. CVA/TIA workup initiated. - Related Data Home Medications: Home Medications Medication Instructions Recorded Confirmed GlipiZIDE [Glucotrol] 10 mg PO DAILY 07/15/15 01/11/17 Insulin Glargine,Hum.rec.anlog 28 unit SQ HS 07/15/15 01/11/17 [Lantus Solostar] Lisinopril [Zestril] 10 mg PO DAILY 07/15/15 01/11/17 Ibuprofen [Motrin] 600 mg PO BID PRN 06/30/16 01/11/17 Ranitidine HCl [Zantac 75] 75 mg PO DAILY 10/27/16 01/11/17 Aspirin 81 mg PO DAILY 01/11/17 01/11/17 Levothyroxine [Synthroid] 125 mcg PO 0630 01/11/17 01/11/17 Allergies/Adverse Reactions: Allergies Allergy/AdvReac Type Severity Reaction Status Date / Time codeine Allergy Mild Nausea Verified 01/11/17 10:36 All systems ED: reviewed and negative except as stated. Review of Systems: As Per HPI Constitutional: Denies: fever, chills Eyes: Denies: vision change ENT ED: Denies: congestion Cardiovascular: Denies: chest pain, dyspnea on exertion Respiratory: Denies: cough, dyspnea Gastrointestinal: Denies: abdominal pain, nausea, vomiting Genitourinary: Denies: urgency, dysuria Musculoskeletal: Denies: back pain, neck pain Integumentary: Denies: rash, abrasion, lesions Neurological: Reports: weakness, numbness, abnormal gait. Denies: headache Past Medical History - Past Medical History Attestation: Yes The following information was validated with the patient. Source: patient Medical history: Reports: arthritis, COPD, diabetes, GERD, hyperlipidemia, hypertension, osteoporosis, thyroid disease, other Surgical history: Reports: cataract, cholecystectomy, hysterectomy, orthopedic, other, JAY/BSO, thyroidectomy, other (Tubal ligation, bilateral.) Psychiatric history: Reports: no psych history CONTENT COORDINATOR history: Reports: bilateral tubal ligation - Social History Smoking Status: Current every day smoker Smokeless Tobacco Status: No Alcohol use: Reports: none Drug use: Reports: none Physical Exam - General Limitations: no limitations General appearance: alert, in no apparent distress, other (Answers questions appropriately) - Head Head exam: atraumatic, normocephalic, normal inspection - Eye Eye exam: Present: normal appearance, PERRL, EOMI. Absent: nystagmus, miosis, mydriasis - ENT ENT exam: normal exam, normal oropharynx, mucous membranes moist - Neck Neck exam: Present: normal inspection, full ROM, trachea midline. Absent: tenderness - Chest Chest inspection: Present: normal inspection, symmetric chest wall rise. Absent : tenderness - Respiratory Respiratory exam: Present: normal lung sounds bilaterally. Absent: respiratory distress, wheezes - Cardiovascular Cardiovascular exam: Present: regular rate, normal rhythm, normal heart sounds. Absent: systolic murmur, diastolic murmur - Abdominal Exam Abdominal exam: Present: soft, Non-Tender, normal bowel sounds. Absent: tenderness, distention, guarding, rebound, rigidity - Extremities Exam Extremities exam: Present: normal inspection, full ROM, normal capillary refill. Absent: tenderness - Expanded Upper Extremity Exam Shoulder exam: Present: normal inspection, full ROM Arm exam: Present: normal inspection, full ROM Elbow exam: Present: normal inspection, full ROM Forearm/Wrist exam: Present: normal inspection, full ROM Hand exam: Present: normal inspection, full ROM Vascular exam: Normal: capillary refill, radial pulse - Expanded Lower Extremity Exam Hip/Pelvis exam: Present: normal inspection, full ROM Upper leg exam: Present: normal inspection, full ROM Knee exam: Present: normal inspection, full ROM Lower leg exam: Present: normal inspection, full ROM Ankle exam: Present: normal inspection, full ROM Foot/toe exam: Present: normal inspection, full ROM Neurovascular/Tendon exam: Present: normal capillary refill, sensory deficit ( Right upper and lower extremity). Absent: pulse deficit, motor deficit, tendon deficit, extremity cold to touch, normal fine/light touch (Right side deficit) - Back Exam Back exam: Present: normal inspection, full ROM. Absent: tenderness - Neurological Exam Neurological exam: Present: alert, oriented X3, CN II-XII intact - Expanded Neurological Exam Patient oriented to: Present: person, place, time Speech: Present: fluid speech Cranial nerves: EOM function (II, III, IV, ): Normal, facial sensation (V): Normal, facial palsy (VII): Normal, gag reflex (IX): Normal, spinal accessory function (XI): Normal, tongue deviation (XII): Normal Cerebellar function: heel to nicholson: Normal Motor strength - LUE: 5/5 Motor strength - RUE: 5/5 Motor strength - LLE: 5/5 Motor strength - RLE: 5/5 Upper motor neuron exam: max neglect: Absent bilaterally, pronator drift: Absent bilaterally Sensory exam upper extremity: light touch: Abnormal Right, pin prick: Abnormal Right Sensory exam lower extremity: light touch: Abnormal Right, pin prick: Abnormal Right - Psychiatric Psychiatric exam: Present: normal affect, normal mood - Skin Skin exam: Present: warm, dry, intact, normal color Course - Reevaluation(s) Reevaluation #1: Initial NIH score of 2 due to sensory deficit on the right side. She is not a tPA candidate due to time frame. No extremity drift. No slurring of the speech. No facial droop. Patient's family is at bedside and states over the past few days she appears to be more week on the right. Today she was sitting and appeared week on the right and was favoring that side leaning towards the right. No history of stroke. Stroke workup initiated without stroke alert due to timing. Radiologists called describing a subacute left frontal infarct with ill-defined timeframe. Patient was given full dose 324 mg aspirin. OB admitted for further workup and imaging. Patient and family are in agreement with this plan. Impression is CVA, right side numbness. - Consultations Consultation #1: Spoke with on-call hospitalist jeff Francisco to admit for subacute left frontal, CVA, right side numbness. No further orders at this time. Time: 23:04 Vital Signs Temperature 99.2 F 06/13/17 20:42 Pulse Rate 98 06/13/17 20:42 Respiratory Rate 18 06/13/17 20:42 Blood Pressure 167/85 06/13/17 20:42 O2 Sat by Pulse Oximetry 94 06/13/17 20:42 Temperature 99.2 F 06/13/17 20:42 Pulse Rate 90 06/13/17 22:06 Respiratory Rate 18 06/13/17 23:38 Blood Pressure 134/67 06/13/17 23:38 O2 Sat by Pulse Oximetry 94 06/13/17 22:06 Oxygen Delivery Oxygen Delivery Room Air Neuro Symptoms/Deficit - Medical Records Medical records reviewed: Yes I reviewed the patient's medical records. - Lab Data Lab results reviewed: Yes I reviewed the patient's lab results. Result diagrams: 06/13/17 21:12 06/13/17 21:12 Lab Results 06/13/17 06/13/17 06/13/17 Range/Units 21:12 21:12 21:12 WBC 7.9 (4.3-11.1) K/mcL RBC 4.78 (3.82-4.97) M/mcL Hgb 13.0 (11.5-15.4) g/dL Hct 40.7 (35.3-44.9) % MCV 85.1 (83.0-100.0) fL MCH 27.2 L (28.0-33.3) pg MCHC 31.9 (31.6-35.5) g/dL RDW 13.3 (11.5-14.5) % Plt Count 265 (140-400) K/mcL MPV 9.6 (9.4-12.4) fL Immature Gran % 0.3 (0-4) % Seg Neutrophils % 54.6 % Lymphocytes % 33.8 % Monocytes % 9.3 % Eosinophils % 1.5 % Basophils % 0.5 % Neutrophils # 4.3 (1.6-8.9) K/mcL Lymphocytes # 2.7 (0.6-4.6) K/mcL Monocytes # 0.7 (0.0-1.3) K/mcL Eosinophils # 0.1 (0.0-0.6) K/mcL Basophils # 0.0 (0.0-0.2) K/mcL PT 12.5 H (9.4-12.1) Seconds INR 1.2 APTT 28.9 (26.0-36.0) Seconds Sodium 133 L (136-145) mEq/L Potassium 3.8 (3.5-4.5) mEq/L Chloride 99 (98-109) mEq/L Carbon Dioxide 25 (19-29) mEq/L BUN 17 (7-20) mg/dL Creatinine 0.84 (0.57-1.11) mg/dL Est GFR ( Amer) > 60 (> 60) Est GFR (Non-Af Amer) > 60 (> 60) BUN/Creatinine Ratio 20 (6-26) Glucose 374 H (70-99) mg/dL Calculated Osmolality 293 (280-300) Calcium 8.8 (8.6-10.8) mg/dL Troponin I (0-0.03) ng/mL 06/13/17 Range/Units 21:12 WBC (4.3-11.1) K/mcL RBC (3.82-4.97) M/mcL Hgb (11.5-15.4) g/dL Hct (35.3-44.9) % MCV (83.0-100.0) fL MCH (28.0-33.3) pg MCHC (31.6-35.5) g/dL RDW (11.5-14.5) % Plt Count (140-400) K/mcL MPV (9.4-12.4) fL Immature Gran % (0-4) % Seg Neutrophils % % Lymphocytes % % Monocytes % % Eosinophils % % Basophils % % Neutrophils # (1.6-8.9) K/mcL Lymphocytes # (0.6-4.6) K/mcL Monocytes # (0.0-1.3) K/mcL Eosinophils # (0.0-0.6) K/mcL Basophils # (0.0-0.2) K/mcL PT (9.4-12.1) Seconds INR APTT (26.0-36.0) Seconds Sodium (136-145) mEq/L Potassium (3.5-4.5) mEq/L Chloride (98-109) mEq/L Carbon Dioxide (19-29) mEq/L BUN (7-20) mg/dL Creatinine (0.57-1.11) mg/dL Est GFR ( Amer) (> 60) Est GFR (Non-Af Amer) (> 60) BUN/Creatinine Ratio (6-26) Glucose (70-99) mg/dL Calculated Osmolality (280-300) Calcium (8.6-10.8) mg/dL Troponin I 0.02 (0-0.03) ng/mL - Radiology Data Radiology results reviewed: Yes I reviewed the patient's radiology results. Head CT 06/13/17 20:49 IMPRESSION: New region of ill-defined low-attenuation within the left frontal lobe abutting the left ventricle. Findings are concerning for acute to subacute infarct. No intracranial bleed. Findings were discussed with Dr. Sandhu at 9:42 pm on 06/13/2017. D/ / Susan Barlow MD / Susan Barlow MD Interpreting Provider: Susan Barlow MD - EKG Data EKG attestation: Yes I reviewed and interpreted this EKG. EKG results narrative: EKG performed 2044 normal sinus rhythm 98 bpm normal axis, good R wave progression, no ST elevations or depression, left atrial enlargement, intervals are within normal limits. Compared to old EKG performed 01/10/2017 which shows consistent findings. No acute ischemic changes. NIH Stroke Scale - Level of Consciousness LOC: Alert - LOC Questions LOC Questions: Answers both correctly - LOC Commands LOC Commands: Performs both correctly - Best Gaze Best Gaze: Normal - Visual Visual: No visual loss - Facial Palsy Facial Palsy: Normal - Motor Arms Motor Arm-Left: No drift for 10 seconds Motor Arm-Right: No drift for 10 seconds - Motor Legs Motor Leg-Left: No drift for 5 seconds Motor Leg-Right: No drift for 5 seconds - Limb Ataxia Limb Ataxia: Absent of affected limb too weak to perform exam - Sensory Sensory: Severe loss. Total sensory loss, pt unaware of being touched - Best Language Best Language: No aphasia - Dysarthria Dysarthria: Normal - Extinction and Inattention Extinction and Inattention: Normal - NIHSS Total Score NIHSS Total Score: 2 TPA Checklist - Eligibilty for IV tPA 1. LKW equal to or less than 4.5 hours be before treatment: No Attestation Statement - Attestation Attestation: I personally interviewd and examined this patient and my medical decision- making was reviewed with the Resident Physician, Dr. Lehman. I agree with the documented findings, disposition and treatment plan as described except to the extent set forth below. Patient is a 66-year-old white female with a history of hypertension high cholesterol and diabetes who presents to the emergency department by EMS tonight with concerns for stroke. Patient states that she has been having episodes of right-sided numbness that it been intermittent for the past 2 days. Patient states the first time she noticed this was on Wednesday morning and that it lasts for various periods of time and she feels it in her right upper and right lower extremities. She states that she has had intermittent burning sensation to the right side of her face. Patient denies any slurred speech no headache or visual changes, no chest pain pressure or heaviness, no shortness of breath, no abdominal pain or flank pain. Patient denies any dizziness or vertigo sensation.Nodifficultywithambulation.Patientstatesthatthesesymptomshavebeengoing offandonsinceFridayandshementionedittoherfamilyabout7 :30tonightwhileshewassittingthereshefeltlikeherrightarmandlegfeltnumb. Patient with no weakness no facial droop and no slurred speech. Patient arrives awake and alert with a GCS of 15. We met the patient at the bedside and performed a neurologic assessment on arrival. Patient with subjective numbness to the right upper and lower extremities but no focal neurologic deficits on assessment. Patient's time of onset of symptoms was 2 days ago. Patient does not meet criteria for TPA stroke alert was not called, based on time of onset and NIH stroke scale(=2, for sensory changes) Patient denies any history of falls or trauma no syncopal episodes or lightheadedness. EKG was obtained at the bedside as patient was placed on school lunch monitor and continuous pulse ox IV saline well was established. Labs were drawn and sent EKG shows normal sinus rhythm with no acute ischemic change. Labs show hyperglycemia but no acidosis otherwise unremarkable. Contacted by radiology in regards to the patient's CT scan. Radiologist states that she sees a subacute infarct in the left frontal lobe that very small and abutting the ventricle. She does not see any sign of bleeding. Patient arrives from radiology with a stable neurologic exam. Vital signs are stable. We will administer patient aspirin and admit her for subacute CVA.
[2017-06-13 21:21] LABS: Basophils % 0.5 %; Eosinophils # 0.1 K/mcL (0.0-0.6); Eosinophils % 1.5 %; Hematocrit 40.7 % (35.3-44.9); Immature Granulocytes % 0.3 % (0-4); Lymphocytes # 2.7 K/mcL (0.6-4.6); Lymphocytes % 33.8 %; Mean Corpuscular HGB Conc 31.9 g/dL (31.6-35.5); Mean Corpuscular Hemoglobin 27.2 pg (28.0-33.3); Mean Corpuscular Volume 85.1 fL (83.0-100.0); Mean Platelet Volume 9.6 fL (9.4-12.4); Monocytes # 0.7 K/mcL (0.0-1.3); Monocytes % 9.3 %; Neutrophils # 4.3 K/mcL (1.6-8.9); Platelet Count 265 K/mcL (140-400); Red Blood Count 4.78 M/mcL (3.82-4.97); Red Cell Distribution Width 13.3 % (11.5-14.5); Segmented Neutrophils % 54.6 %
[2017-06-13 21:28] LABS: INR 1.2; Prothrombin Time 12.5 Seconds (9.4-12.1)
[2017-06-13 21:30] LABS: Activated Partial Thrombo Time 28.9 Seconds (26.0-36.0)
[2017-06-13 21:32] LABS: BUN/Creatinine Ratio 20 (6-26); Blood Urea Nitrogen 17 mg/dL (7-20); Calcium 8.8 mg/dL (8.6-10.8); Carbon Dioxide 25 mEq/L (19-29); Chloride 99 mEq/L (98-109); Glucose 374 mg/dL (70-99); Osmolality,Calculated 293 (280-300); Potassium 3.8 mEq/L (3.5-4.5); Sodium 133 mEq/L (136-145); eGFR For African Americans > 60 (> 60); eGFR For Non-African Americans > 60 (> 60)
[2017-06-13] MEDS ORDERED: Aspirin 81 MG TAB.CHEW PO STA (21:44)
--- NOTE | 2017-06-13 23:18 | Internal Med History&Physical ---
Date of Encounter: 06/14/17 Time of Encounter: 23:16 Assessment and Plan (1) Cerebrovascular accident Current visit: Yes Status: Acute Left frontal subacute infarct. Symptom onset gradual over 2 days to 10 days. Not a tpa candidate. No subjective leg weakness, but on exam, RLE 4/5 - Neuro checks - Start Statin - Cont asa - Neurology/MARKETING INTERN/PT/OT consult - Check TTE/bubble study, carotid dupplex - telemetry r/o a-fib - quit tobacco - permissive hypertension if BP high Qualifiers: CVA mechanism: unspecified Qualified Code(s): I63.9 - Cerebral infarction, unspecified (2) Numbness and tingling of right upper and lower extremity Current visit: Yes Status: Acute as above (3) COPD (chronic obstructive pulmonary disease) Current visit: No Status: Chronic no exacerbation, monitor Qualifiers: COPD type: unspecified COPD Qualified Code(s): J44.9 - Chronic obstructive pulmonary disease, unspecified (4) Diabetes Current visit: No Status: Chronic cont Levemir, reduce dose while NPO for swallow assessment check A1C Qualifiers: Diabetes 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 Per family, she had right leg numbness for 1.5 weeks and right arm numbness for 2 days. Family also noticed personality changes like inability to keep a conversation going as he used to be as well as change in preference for coffee. Patient reports right sided face burning. Denies any weakness, but family has noticed that she leans to the right side. No prior stroke or atrial fibrillation. She was found to have left frontal ischemic stroke, subacute, on CT head in ED. She was out of tpa window on arrival . NIHSS 2. Feeling hot and cold. A 10-point ROS is otherwise negative for headache, dizziness, eye or ear symptoms, flu like symptoms, n, v, abd pain, d, c, cough, sputum, fever, rigors , dysuria or other symptoms. Past Med Surg Social Fam HX - Past Medical History Medical history: arthritis, COPD, diabetes, GERD, hyperlipidemia, hypertension, osteoporosis, thyroid disease, other Psychiatric history: no psych history - Past Surgical History Surgical History: cataract, cholecystectomy, hysterectomy, orthopedic, other, JAY/BSO, thyroidectomy, other (Tubal ligation, bilateral.) - Social History Smoking Status: Current every day smoker Smokeless Tobacco Status: No Alcohol use: none Drug use: none - Family History Father Adopted: No Family Member Ethnicity: Non- Living Status: Hx Family Cardiac Disorders: Yes Hx Family Respiratory Disorders: No Hx Family Cancer: No Hx Family GI Disorders: No Hx Family Endocrine Disorder: No Hx Family Neuromuscular Disorders: No Hx Family Neurologic Disorders: No Hx Family HEENT Disorders: No Hx Family Autoimmune Disorders: No Internal Medicine - H&P: Meds GlipiZIDE [Glucotrol] 10 mg PO DAILY 07/15/15 [History] Insulin Glargine,Hum.rec.anlog [Lantus Solostar] 28 unit SQ HS 07/15/15 [History ] Lisinopril [Zestril] 10 mg PO DAILY 07/15/15 [History] Ibuprofen [Motrin] 600 mg PO BID PRN 06/30/16 [History] Ranitidine HCl [Zantac 75] 75 mg PO DAILY 10/27/16 [History] Aspirin 81 mg PO DAILY 01/11/17 [History] Levothyroxine [Synthroid] 125 mcg PO 0630 01/11/17 [History] 3 Allergy/AdvReac Type Severity Reaction Status Date / Time codeine Allergy Mild Nausea Verified 01/11/17 10:36 All Systems PM: A 10-system review of systems was performed and is negative for pertinent findings except as documented above in the HPI. - Constitutional Vitals: Temp Pulse Resp BP Pulse Ox 99.2 F 90 17 136/67 94 06/13/17 20:42 06/13/17 22:06 06/13/17 22:06 06/13/17 22:06 06/13/17 22:06 General appearance: Present: A&O X 3, pleasant, no acute distress - Head Head exam: Present: atraumatic, normal inspection - Eye Eye exam: Present: PERRL, sclera anicteric (right lateral gaze slightly limited , no nystagmus) - ENT ENT exam: Present: mucous membranes moist, normal exam - Neck Neck exam general surgery: Present: supple. Absent: nuchal rigidity - Respiratory Respiratory exam: Present: CTAB. Absent: rales, rhonchi, wheezes - Cardiovascular Cardiovascular exam: Present: RRR, +S1, +S2. Absent: diastolic murmur, systolic murmur - GI/Abdominal GI/Abdominal exam: Present: normal bowel sounds, soft. Absent: guarding, rebound, tenderness - Extremities Exam Extremities exam: Present: normal inspection, warm. Absent: pedal edema - Back Exam Back exam: Absent: CVA tenderness (L), CVA tenderness (R) - Expanded Neurological Exam Neurological exam expanded: Absent: expressive aphasia, receptive aphasia Patient oriented to: Present: person, place, time Cranial Nerves: EOM's intact PM: Abnormal Right (slightly limited ), tongue deviation PM: Normal Upper motor neuron: Babinski sign: Abnormal Right, Normal (non specific on left , downgoing on left) Neuro motor strength exam: LUE: 5, RUE: 5, LLE: 5, RLE: 4 DTR: bicep (L): 2+, bicep (R): 2+, patellar (L): 2+, patellar (R): 2+ Coma Scale Eye Opening: Spontaneous Coma Scale Motor Response: Obeys Commands Coma Scale Verbal Response: Oriented Coma Scale Total: 15 - Psychiatric Psychiatric exam: Present: flat affect, normal mood - Skin Skin exam: Present: normal color. Absent: rash Internal Med - H&P Results - Labs CBC & Chem 7: 06/13/17 21:12 06/13/17 21:12 - EKG Data -: EKG Interpreted by Myself (sinus 98 bpm, QTc 382) - Diagnostic Studies CT scan - head Status: image reviewed by me (left frontal subacute infarct)
[2017-06-14] MEDS ORDERED: Acetaminophen 325 MG TABLET PO PRN (00:52)
[2017-06-14] MEDS ORDERED: D5% in Water 1,000 ML IVC PRN (00:55)
[2017-06-14] MEDS ORDERED: Dextrose Gel 15 GM PO PRN ×2 (00:55)
[2017-06-14] MEDS ORDERED: *HR* Dextrose 50 % in Water (Syg) 50 ML SYRINGE IVP PRN (00:55)
[2017-06-14] MEDS: Insulin DETEMIR 100 UNIT/ML X5UNITS SQ SCH ×2 (01:32→23:43)
[2017-06-14] MEDS ORDERED: Naloxone 0.4 MG/ML INJ IVP PRN (03:47)
[2017-06-14 03:51] LABS: Amphetamine Screen,Urine Negative ng/mL (Cutoff=1000); Barbiturate Screen,Urine Negative ng/mL (Cutoff=200); Benzodiazepines Screen,Urine Negative ng/mL (Cutoff=200); Cannabinoid Screen,Urine Negative ng/mL (Cutoff = 50); Cocaine Screen,Urine Negative ng/mL (Cutoff= 300); Opiate Screen,Urine Negative ng/mL (Cutoff=300); Phencyclidine Screen,Urine Negative ng/mL (Cutoff=25)
[2017-06-14 04:39] LABS: Basophils # 0.1 K/mcL (0.0-0.2); Basophils % 0.7 %; Eosinophils # 0.2 K/mcL (0.0-0.6); Hematocrit 38.7 % (35.3-44.9); Hemoglobin 12.8 g/dL (11.5-15.4); Immature Granulocytes % 0.3 % (0-4); Lymphocytes # 2.9 K/mcL (0.6-4.6); Mean Corpuscular HGB Conc 33.1 g/dL (31.6-35.5); Mean Corpuscular Hemoglobin 28.1 pg (28.0-33.3); Mean Corpuscular Volume 84.9 fL (83.0-100.0); Mean Platelet Volume 9.6 fL (9.4-12.4); Monocytes # 0.8 K/mcL (0.0-1.3); Monocytes % 10.4 %; Neutrophils # 3.5 K/mcL (1.6-8.9); Platelet Count 250 K/mcL (140-400); Red Blood Count 4.56 M/mcL (3.82-4.97); Red Cell Distribution Width 13.6 % (11.5-14.5); Segmented Neutrophils % 47.6 %
[2017-06-14 04:58] LABS: BUN/Creatinine Ratio 19 (6-26); Blood Urea Nitrogen 15 mg/dL (7-20); Calcium 8.9 mg/dL (8.6-10.8); Carbon Dioxide 26 mEq/L (19-29); Chloride 102 mEq/L (98-109); Glucose 277 mg/dL (70-99); Osmolality,Calculated 293 (280-300); Potassium 3.7 mEq/L (3.5-4.5); Sodium 136 mEq/L (136-145); eGFR For African Americans > 60 (> 60); eGFR For Non-African Americans > 60 (> 60)
[2017-06-14 05:13] LABS: Thyroid Stimulating Hormone 6.738 mcIU/mL (0.350-4.840)
[2017-06-14 05:15] LABS: Hemoglobin A1C 11.6 %
[2017-06-14] MEDS: *HR* Heparin 5,000 UNIT/ML VIAL SQ SCH ×3 (05:23→23:43)
[2017-06-14] MEDS ORDERED: Insulin LISPRO 300 UNITS/3 ML VIAL SQ SCH (07:30)
[2017-06-14] MEDS ORDERED: Aspirin 81 MG TAB.CHEW PO SCH (09:00)
[2017-06-14] MEDS: Nicotine 21 MG PATCH.TD24 TD SCH (09:14)
[2017-06-14] MEDS ORDERED: 0.9 % Sodium Chloride 1,000 ML IVC ONE (11:50)
[2017-06-14] MEDS ORDERED: 0.9 % Sodium Chloride 1,000 ML IVC SCH (12:00)
--- NOTE | 2017-06-14 14:09 | Internal Med Progress Note ---
Date of Encounter: 06/14/17 Time of Encounter: 12:00 - Assessment and plan (1) Cerebrovascular accident Current Visit: Yes Status: Suspected Assessment and plan: Patient with sudden onset right upper and lower extremity weakness and changes in speech. Exam findings revealed weakness in the right upper and lower expertise. Speech difficulty. CT scan of the head reveals left frontal lobe infarction. Suspect embolism in the left anterior cerebral artery. MRI. Patient was on aspirin when she had the stroke. Hence, aspirin and beta screen urine should be placed on Plavix. Speech therapy evaluation. Physical therapy and occupational therapy. Allow permissive hypertension due to acute stroke. Hold all antihypertensive medications. Patient is high risk due to acute stroke and risk of seizures and worsening symptoms. Continue statin. Qualifiers: CVA mechanism: embolism Precerebral and cerebral artery: anterior cerebral artery Laterality of affected vessel: left Qualified Code(s): I63.422 - Cerebral infarction due to embolism of left anterior cerebral artery (2) COPD (chronic obstructive pulmonary disease) Current Visit: Yes Status: Chronic Assessment and plan: Stable. Continue home medications. Qualifiers: COPD type: unspecified COPD Qualified Code(s): J44.9 - Chronic obstructive pulmonary disease, unspecified (3) Diabetes Current Visit: Yes Status: Chronic Assessment and plan: Hemoglobin A1c greater than 11. Uncontrolled diabetes. Currently, patient is nothing by mouth. Continue 18 units of basal insulin. Once the patient is able to eat, resume home dose of basal insulin at 28 units and titrate for optimal control. 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 Qualifiers: Hypertension type: essential hypertension Qualified Code(s): I10 - Essential (primary) hypertension - Subjective Interval history: Patient seen and evaluated this morning. She reports weakness on the right side of her body in the arm and leg. She is currently recommended by the family also reported that she has changes in her speech. The family and staff stated that the patient has gradually worsened compared to this morning. - Constitutional Vitals: Temp Pulse Resp BP Pulse Ox 98.1 F 92 16 113/58 97 06/14/17 11:16 06/14/17 11:16 06/14/17 11:16 06/14/17 11:16 06/14/17 11:16 General appearance: Present: A&O X 3, pleasant, no acute distress Exam: Gen.: Lying in bed. Mild distress. Chest: Clear to auscultation bilaterally. No adventitious sounds present. CVS: First and second heart sounds present. No murmurs, rubs or gallops. Abdomen: Soft, nontender, nondistended. Bowel sounds present. No hepatosplenomegaly. Skin: No decubitus ulcers appreciated. 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 Power of 4/5 in the right upper extremity and 2/5 in the right lower extremity. Sensations intact. Internal Medicine: Result - Labs CBC & Chem 7: 06/14/17 04:22 06/14/17 04:22 Labs: Short CBC 06/14/17 Range/Units 04:22 WBC 7.4 (4.3-11.1) K/mcL Hgb 12.8 (11.5-15.4) g/dL Hct 38.7 (35.3-44.9) % Plt Count 250 (140-400) K/mcL Neutrophils # 3.5 (1.6-8.9) K/mcL BMP 06/14/17 04:22 Sodium 136 Potassium 3.7 Chloride 102 Carbon Dioxide 26 BUN 15 Creatinine 0.77 Glucose 277 H Calcium 8.9 - ABG Interpretation ABG results: PT/INR, D-dimer PT 12.5 Seconds (9.4-12.1) H 06/13/17 21:12 Consult Discharge Plan - Plan Referrals: Rosemarie Fried, ELECTRICAL POWER ENGINEER [Primary Care Provider] -
--- NOTE | 2017-06-14 16:06 | Neurology - Consult Note ---
Date of Encounter: 06/14/17 Time of Encounter: 10:00 Assessment and Plan (1) Cerebrovascular accident Current Visit: Yes Status: Suspected Patient's symptoms history exam findings seems to be consistent with an acute/ subacute stroke process in the left hemisphere she does have multiple risk factor. She is on antiplatelet agents suggested to continue at the same time we will get a stroke workup including echocardiogram as well as carotid duplex monitor her for any cardiac arrhythmias she would benefit from physical therapy evaluation as well Qualifiers: CVA mechanism: thrombosis Precerebral and cerebral artery: anterior cerebral artery Laterality of affected vessel: unspecified Qualified Code(s) : I63.329 - Cerebral infarction due to thrombosis of unspecified anterior cerebral artery (2) Numbness and tingling of right upper and lower extremity Current Visit: Yes Status: Acute History of Present Illness HPI: Ms. Nava is a 66 year old female HTN, IDDM, tobacco use presented with right sided numbness, weakness and difficulty with words, Per family, she had right leg numbness for 1.5 weeks and right arm numbness for 2 days but also noticed that she has hard times in saying things, and inability to keep a conversation. she leans to the right side. No prior stroke or atrial fibrillation. CT of head showed concern of subacute stroke, on CT head in ED. She was out of tpa window upon arrival, admitted for further work up. Past Med Surg Social Fam HX - Past Medical History Medical history: arthritis, COPD, diabetes, GERD, hyperlipidemia, hypertension, osteoporosis, thyroid disease, other Psychiatric history: no psych history - Past Surgical History Surgical History: cataract, cholecystectomy, hysterectomy, orthopedic, other, JYA/BSO, thyroidectomy, other (Tubal ligation, bilateral.) - Social History Smoking Status: Current every day smoker Packs per day: 3-4 Smokeless Tobacco Status: No Alcohol use: none Drug use: none - Family History Father Adopted: No Family Member Ethnicity: Non- Living Status: Hx Family Cardiac Disorders: Yes Hx Family Respiratory Disorders: No Hx Family Cancer: No Hx Family GI Disorders: No Hx Family Endocrine Disorder: No Hx Family Neuromuscular Disorders: No Hx Family Neurologic Disorders: No Hx Family HEENT Disorders: No Hx Family Autoimmune Disorders: No Medications and Allergies GlipiZIDE [Glucotrol] 10 mg PO DAILY 07/15/15 [History] Insulin Glargine,Hum.rec.anlog [Lantus Solostar] 28 unit SQ HS 07/15/15 [History ] Lisinopril [Zestril] 10 mg PO DAILY 07/15/15 [History] Ibuprofen [Motrin] 600 mg PO BID PRN 06/30/16 [History] Ranitidine HCl [Zantac 75] 75 mg PO DAILY 10/27/16 [History] Aspirin 81 mg PO DAILY 01/11/17 [History] Levothyroxine [Synthroid] 125 mcg PO 0630 01/11/17 [History] Sulfamethoxazole/Trimeth DS [Bactrim Ds] 1 tab PO BID 06/14/17 [History] cephALEXin [Keflex] 500 mg PO QID 06/14/17 [History] 3 Allergy/AdvReac Type Severity Reaction Status Date / Time codeine Allergy Mild Nausea Verified 01/11/17 10:36 All Systems: A 10-system review of systems was performed and is negative for pertinent findings except as documented above in the HPI. Physical Examination - Vital Signs Vital Signs: Initial Vital Signs Temp Pulse Resp BP Pulse Ox 99.2 F 98 18 167/85 94 06/13/17 20:42 06/13/17 20:42 06/13/17 20:42 06/13/17 20:42 06/13/17 20:42 - Constitutional General appearance: comfortable - Neurologic Sensorimotor examination: intact Detailed motor examination: grossly full strength in all extremities Motor examination - right side: 4/5: deltoids, biceps, triceps, wrist flexion, wrist extension, baseball winder, hip flexors, tibialis Anterior, quadriceps, toe extension (EHL), plantarflexion Motor examination - left side: 5/5: deltoids, biceps, triceps, wrist flexion, wrist extension, hip flexors, baseball winder, quadriceps, tibialis Anterior, toe extension (EHL), plantarflexion Detailed sensory examination: intact Reflex and gait examination: intact Reflexes: Biceps: 1+, Triceps: 1+, Brachioradialis: 1+, Patella: 1+, Achilles: 1 + Mental Status Examination: awake, alert, oriented to person, oriented to place, oriented to time, follows commands appropriately, answers questions appropriately, no agnosia, no aphasia, no aproxia Cranial nerve examination: PERRL, EOMI, visual nuñez intact, corneal reflexes brisk symmetrically, sensory to face intact, no facial asymmetry is present, no dysarthria Results - Laboratory Findings CBC and BMP: 06/14/17 04:22 06/14/17 04:22 Abnormal lab findings: Abnormal lab results PT 12.5 Seconds (9.4-12.1) H 06/13/17 21:12 Glucose 277 mg/dL (70-99) H 06/14/17 04:22 POC Glucose 265 (58-89) H 06/14/17 00:15 Hemoglobin A1c 11.6 % (-5.6) H 06/14/17 04:22 TSH 6.738 mcIU/mL (0.350-4.840) H 06/14/17 04:22 Consult Discharge Plan - Plan Referrals: Rosemarie Fried, RAILROAD FIRER [Primary Care Provider] -
[2017-06-14] MEDS: Insulin LISPRO 300 UNITS/3 ML VIAL SQ SCH ×2 (16:23→23:42)
--- NOTE | 2017-06-14 17:14 | Electrocardiograph Report ---
[place] [id number] Test Date: 2017-06-13 Pat Name: Emerald Nava Department: 104 Room: 2NE30 Gender: F Rim Buster: HANNAH : 1950 Requested By: Nahun Mendez Order Number: [id number] Reading MD: Odessa Vail Measurements Intervals [place] Rate: 98 P: 60 NM: 151 QRS: 59 QRSD: 78 T: 71 QT: 327 QTc: 382 Interpretive Statements SINUS RHYTHM POSSIBLE LEFT ATRIAL ENLARGEMENT Electronically Signed On 06-14-2017 17:13:11 EDT by Odessa Vail
[2017-06-15] MEDS: Insulin LISPRO 300 UNITS/3 ML VIAL SQ SCH ×5 (01:08→21:18)
[2017-06-15] MEDS: *HR* Heparin 5,000 UNIT/ML VIAL SQ SCH ×3 (06:05→21:17)
--- NOTE | 2017-06-15 08:48 | Neurology Progress Note ---
Date of Encounter: 06/15/17 Time of Encounter: 08:10 Assessment and Plan (1) Cerebrovascular accident Current Visit: Yes Status: Suspected stable, suggest to continue on ANtiplatelet therapy and statin, awaits carotid result, probably benefit from acute Rehab, as due to weakness in leg high risk of fall Qualifiers: CVA mechanism: thrombosis Precerebral and cerebral artery: anterior cerebral artery Laterality of affected vessel: unspecified Qualified Code(s) : I63.329 - Cerebral infarction due to thrombosis of unspecified anterior cerebral artery (2) Numbness and tingling of right upper and lower extremity Current Visit: Yes Status: Acute Subjective Interval history: pt is stable no new findings, MRI confirmed Infarct in left Frontal lobe, ECHO is negative, carotid pending, seen by PT as well Objective - Constitutional Vitals: Temp Pulse Resp BP Pulse Ox 98.3 F 79 15 128/64 95 06/15/17 06:50 06/15/17 06:50 06/15/17 06:50 06/15/17 06:50 06/15/17 06:50 - Neurological Exam Sensorimotor examination: Present: intact Motor Examination: Present: grossly full strength in all extremities Motor examination - left side: 5/5: deltoids, biceps, triceps, wrist flexion, wrist extension, hip flexors, nitrator operator, quadriceps, tibialis Anterior, toe extension (EHL), plantarflexion Sensation intact: Present: intact Reflex and gait examination: intact Mental Status Examination: Present: awake, alert, oriented to person, oriented to place, oriented to time, follows commands appropriately, answers questions appropriately, no agnosia, no aphasia, no aproxia Cranial nerve examination: Present: PERRL, EOMI, visual nuñez intact, corneal reflexes brisk symmetrically, sensory to face intact, no facial asymmetry is present, no dysarthria - VTE Documentation of Mechanical Device: Intermittent pneumatic compression device Results - Laboratory Findings CBC and BMP: 06/14/17 04:22 06/14/17 04:22 Abnormal lab findings: Abnormal lab results PT 12.5 Seconds (9.4-12.1) H 06/13/17 21:12 Glucose 277 mg/dL (70-99) H 06/14/17 04:22 POC Glucose 156 (58-89) H 06/14/17 23:35 Hemoglobin A1c 11.6 % (-5.6) H 06/14/17 04:22 TSH 6.738 mcIU/mL (0.350-4.840) H 06/14/17 04:22 Consult Discharge Plan - Plan Referrals: Rosemarie Fried CNP [Primary Care Provider] -
[2017-06-15] MEDS: Nicotine 21 MG PATCH.TD24 TD SCH (09:47)
--- NOTE | 2017-06-15 13:13 | Carotid Imaging Report ---
Carotid Duplex Patient Name:Emerald Nava Order Number:[id number] Procedure Date:06/14/2017 Date:1950ge:66 yrs Gender:Female Location:[facility] Room #: 2NE30 [employer] League Baseball Player:Macarena Rosen, RVT, RDCS Referring MD:Maverick Vazquez MD dairy farm supervisor:None Reading MD:Juan Miguel Stern MD Primary Indications:CVA Risk Factors Yes/No Hypertension Yes Diabetes Yes Smoking Current Yes Impressions: The right carotid artery has minimal plaque throughout. The left internal carotid artery has a 40-59% stenosis. Recommendations: Risk factor reduction. Follow-up carotid duplex in 1 year. Findings Carotid Duplex: Right: The right proximal common carotid artery has a PSV of 62 cm/s and a EDV of 14 cm/s. The right mid common carotid artery has a PSV of 80 cm/s and a EDV of 16 cm/s. The right distal common carotid artery has a PSV of 79 cm/s and a EDV of 17 cm/s. There is nonstenotic plaque in the right bifurcation with a PSV of 41 cm/s and a EDV of 12 cm/s. The right proximal internal carotid artery has a PSV of 71 cm/s and a EDV of 22 cm/s. The right mid internal carotid artery has a PSV of 79 cm/s and a EDV of 24 cm/s. The right distal internal carotid artery has a PSV of 69 cm/s and a EDV of 17 cm/s. The right eca has a PSV of 119 cm/s and a EDV of 27 cm/s. The right vertebral artery has a PSV of 48 cm/s and a EDV of 13 cm/s. Left: There is nonstenotic plaque in the left proximal common carotid artery with a PSV of 93 cm/s and a EDV of 17 cm/s. There is nonstenotic plaque in the left mid common carotid artery with a PSV of 100 cm/s and a EDV of 18 cm/s. The left distal common carotid artery has a PSV of 68 cm/s and a EDV of 13 cm/s. There is nonstenotic plaque in the left bifurcation with a PSV of 61 cm/s and a EDV of 14 cm/s. There is nonstenotic plaque in the left proximal internal carotid artery with a PSV of 68 cm/s and a EDV of 20 cm/s. The left mid internal carotid artery has a PSV of 97 cm/s and a EDV of 29 cm/s. There is 40-59% stenosis in the left distal internal carotid artery with a PSV of 158 cm/s and a EDV of 31 cm/s. The left eca has a PSV of 140 cm/s and a EDV of 29 cm/s. Prior Study: No prior study available for comparison. Carotid Results Right PSV EDV Assessment Proximal CCA 62 14 Normal Mid CCA 80 16 Normal Distal CCA 79 17 Normal Bifurcation 41 12 Non Stenotic Plaque Proximal ICA 71 22 Normal Mid ICA 79 24 Normal Distal ICA 69 17 Normal ECA 119 27 Normal Vertebral Artery 48 13 Normal Left PSV EDV Assessment Proximal CCA 93 17 Non Stenotic Plaque Mid CCA 100 18 Non Stenotic Plaque Distal CCA 68 13 Normal Bifurcation 61 14 Non Stenotic Plaque Proximal ICA 68 20 Non Stenotic Plaque Mid ICA 97 29 Normal Distal ICA 158 31 40-59% stenosis ECA 140 29 Normal Vertebral Artery 61 16 Normal Ratio's Right ICA/CCA Ratio: 0.99 ICA/CCA Values: 79/80 Left ICA/CCA Ratio: 1.58 ICA/CCA Values: 158/100 Updated by Juan Miguel Stern MD on 06/15/2017 1:05:57 PM electronically signed on 06/15/2017 1:06:15 PM with status of Final
--- NOTE | 2017-06-15 14:31 | Internal Med Progress Note ---
Date of Encounter: 06/15/17 Time of Encounter: 12:45 - Assessment and plan (1) Cerebrovascular accident Current Visit: Yes Status: Suspected Assessment and plan: Continue Plavix and statin. Patient counseled extensively regarding the need for smoking cessation. Patient will require eventual rehabilitation placement. Neurology on board. Appreciate input and assistance. Discontinue intravenous fluids. Will monitor blood pressure and gradually resume her blood pressure medications. Patient is moderate risk due to risk of falls and the need for placement to rehabilitation prior to discharge home. Qualifiers: CVA mechanism: thrombosis Precerebral and cerebral artery: anterior cerebral artery Laterality of affected vessel: left Qualified Code(s): I63.322 - Cerebral infarction due to thrombosis of left anterior cerebral artery (2) COPD (chronic obstructive pulmonary disease) Current Visit: Yes Status: Chronic Assessment and plan: Stable. Continue home medications. Qualifiers: COPD type: chronic bronchitis Chronic bronchitis type: simple Qualified Code(s): J41.0 - Simple chronic bronchitis (3) Diabetes Current Visit: Yes Status: Chronic Assessment and plan: Continue current dose of basal insulin. Monitor her blood sugars and adjust insulin accordingly. Continue sliding scale insulin. Qualifiers: Diabetes mellitus type: type 2 Diabetes mellitus complication status: with hyperglycemia Diabetes mellitus longterm insulin use: with long distance operator use Qualified Code(s): E11.65 - Type 2 diabetes mellitus with hyperglycemia; Z79.4 - retirement (current) use of insulin (4) HTN (hypertension) Current Visit: Yes Status: Chronic Assessment and plan: Continue to hold blood pressure medications for now. Monitor blood pressure and resume medications accordingly. Qualifiers: Hypertension type: essential hypertension Qualified Code(s): I10 - Essential (primary) hypertension - Subjective Interval history: Patient is currently coming by her family. According to the family, the patient looks much better today compared to yesterday. Patient states that she is able to move her right lower extremity today. She also states that her speech is better. She states that she continues to smoke cigarettes at home daily. She states that she is not interested to quit. - Constitutional Vitals: Temp Pulse Resp BP Pulse Ox 98.3 F 85 15 122/60 93 06/15/17 10:00 06/15/17 10:00 06/15/17 10:00 06/15/17 10:00 06/15/17 10:00 General appearance: Present: A&O X 3, pleasant, no acute distress Exam: Gen.: Lying in bed. No acute distress. Her speech is better today. Chest: Clear to auscultation bilaterally. No adventitious sounds present. CVS: First and second heart sounds present. No murmurs, rubs or gallops. Abdomen: Soft, nontender, nondistended. Bowel sounds present. No hepatosplenomegaly. Skin: No decubitus ulcers appreciated. LAWN SPRINKLER SERVICER: Power 5/5 in left upper and lower expertise. 4/5 in the right upper and lower extremities. Sensations intact. Speech better. Psychiatric: Alert, awake and oriented to time, place but not oriented to person. Internal Medicine: Result - Labs CBC & Chem 7: 06/14/17 04:22 06/14/17 04:22 - ABG Interpretation ABG results: PT/INR, D-dimer PT 12.5 Seconds (9.4-12.1) H 06/13/17 21:12 - Impressions Impressions Brain MRI 06/14/17 08:07 IMPRESSION: Acute left anterior cerebral artery territory infarct. There is minimal effacement of the left lateral ventricle. No evidence of acute intracranial hemorrhage. D/ / Cj Jackson MD / Cj Jackson MD Interpreting Provider: Cj Jackson MD - VTE Documentation of Mechanical Device: Intermittent pneumatic compression device Consult Discharge Plan - Plan Referrals: Rosemarie Fried, GOLF COURSE MECHANIC [Primary Care Provider] -
--- NOTE | 2017-06-15 14:51 | EEG/EMG/Oth Biometrics Report ---
EEG Procedure Report Date of procedure: 06/14/17 EEG Procedure: Routine EEG Procedure Note: This is a 21 channel digital EEG performed utilizing 1020/electrode placement system. Patient has a predominant waking background frequency that is between 10-12 Hz symmetrically recorded both hemispheres and reactive to eyes opening bilaterally. There is no evidence of any seizure activity noted patient did become drowsy but did not go to stage II sleep Photic stimulation did not elicit any convulsive response Clinical Interpretation Normal electroencephalogram
[2017-06-15] MEDS: Insulin DETEMIR 100 UNIT/ML X5UNITS SQ SCH (21:18)
[2017-06-16] MEDS: *HR* Heparin 5,000 UNIT/ML VIAL SQ SCH ×3 (05:40→22:16)
--- NOTE | 2017-06-16 09:03 | Neurology Progress Note ---
Date of Encounter: 06/16/17 Time of Encounter: 09:01 Assessment and Plan (1) Cerebrovascular accident Current Visit: Yes Status: Suspected stable, suggest to continue on ANtiplatelet therapy and statin, probably benefit from acute Rehab, as due to weakness in leg high risk of fall for left IC stenosis suggest Medical treatment with PLAVIX and STATIN, ok to transfer to rehab Qualifiers: CVA mechanism: thrombosis Precerebral and cerebral artery: anterior cerebral artery Laterality of affected vessel: left Qualified Code(s): I63.322 - Cerebral infarction due to thrombosis of left anterior cerebral artery (2) Numbness and tingling of right upper and lower extremity Current Visit: Yes Status: Acute (3) Left carotid stenosis Current Visit: Yes Status: Acute Subjective Interval history: pt is stable no new findings, MRI confirmed Infarct in left Frontal lobe, ECHO is negative, carotid pending, seen by PT as well carotid left IC upto 59% right ICA OK, no new issues Objective - Constitutional Vitals: Temp Pulse Resp BP Pulse Ox 98.1 F 83 16 145/80 95 06/16/17 07:16 06/16/17 07:16 06/16/17 07:16 06/16/17 07:16 06/16/17 07:16 - Neurological Exam Sensorimotor examination: Present: intact Motor Examination: Present: grossly full strength in all extremities Motor examination - left side: 5/5: deltoids, biceps, triceps, wrist flexion, wrist extension, hip flexors, control area operator, quadriceps, tibialis Anterior, toe extension (EHL), plantarflexion Sensation intact: Present: intact Reflex and gait examination: intact Mental Status Examination: Present: awake, alert, oriented to person, oriented to place, oriented to time, follows commands appropriately, answers questions appropriately, no agnosia, no aphasia, no aproxia Cranial nerve examination: Present: PERRL, EOMI, visual nuñez intact, corneal reflexes brisk symmetrically, sensory to face intact, no facial asymmetry is present, no dysarthria - VTE Documentation of Mechanical Device: Intermittent pneumatic compression device Results - Laboratory Findings CBC and BMP: 06/14/17 04:22 06/14/17 04:22 Abnormal lab findings: Abnormal lab results PT 12.5 Seconds (9.4-12.1) H 06/13/17 21:12 Glucose 277 mg/dL (70-99) H 06/14/17 04:22 POC Glucose 261 (58-89) H 06/15/17 20:26 Hemoglobin A1c 11.6 % (-5.6) H 06/14/17 04:22 TSH 6.738 mcIU/mL (0.350-4.840) H 06/14/17 04:22 Consult Discharge Plan - Plan Referrals: Rosemarie Fried, STEPHANIA [Primary Care Provider] -
[2017-06-16] MEDS: Insulin LISPRO 300 UNITS/3 ML VIAL SQ SCH ×4 (09:05→22:17)
[2017-06-16] MEDS: Nicotine 21 MG PATCH.TD24 TD SCH (09:05)
[2017-06-16] MEDS: Insulin DETEMIR 100 UNIT/ML X5UNITS SQ SCH ×2 (11:40→22:17)
--- NOTE | 2017-06-16 13:08 | Internal Med Progress Note ---
Date of Encounter: 06/16/17 Time of Encounter: 12:45 - Assessment and plan (1) Cerebrovascular accident Current Visit: Yes Status: Suspected Assessment and plan: Continue Plavix and statin. Rehabilitation placement tomorrow. Neurology on board. Appreciate input and recommendations. Carotid Dopplers revealed 60% right stenosis. No indication for surgical intervention. Medical management. Patient is moderate risk due to risk of falls and the need for placement to rehabilitation prior to discharge home. Qualifiers: CVA mechanism: thrombosis Precerebral and cerebral artery: anterior cerebral artery Laterality of affected vessel: left Qualified Code(s): I63.322 - Cerebral infarction due to thrombosis of left anterior cerebral artery (2) COPD (chronic obstructive pulmonary disease) Current Visit: Yes Status: Chronic Assessment and plan: Stable. Continue home medications. Qualifiers: COPD type: chronic bronchitis Chronic bronchitis type: simple Qualified Code(s): J41.0 - Simple chronic bronchitis (3) Diabetes Current Visit: Yes Status: Chronic Assessment and plan: Increase the dose of basal insulin to 15 twice a day. Monitor blood sugars and adjust the dose of insulin accordingly. Continue sliding scale insulin. 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 Monitor blood pressure and resume when necessary. Qualifiers: Hypertension type: essential hypertension Qualified Code(s): I10 - Essential (primary) hypertension - Subjective Interval history: Patient seen and evaluated. States that she feels well. She has been consuming a diet without any difficulty swallowing. She reports that her weakness is getting better on the right side. - Constitutional Vitals: Temp Pulse Resp BP Pulse Ox 98.2 F 88 16 122/62 94 06/16/17 11:24 06/16/17 11:24 06/16/17 11:24 06/16/17 11:24 06/16/17 11:24 General appearance: Present: A&O X 3, pleasant, no acute distress Exam: Gen.: Lying in bed. No acute distress. Chest: Clear to auscultation bilaterally. No adventitious sounds present. CVS: First and second heart sounds present. No murmurs, rubs or gallops. Abdomen: Soft, nontender, nondistended. Bowel sounds present. No hepatosplenomegaly. Skin: No decubitus ulcers appreciated. EMBLEM MAKER: Power 5/5 in the left upper and lower extremities. 4/5 in the right upper extremity and 3/5 in the right lower extreme edema. Internal Medicine: Result - Labs CBC & Chem 7: 06/14/17 04:22 06/14/17 04:22 - ABG Interpretation ABG results: PT/INR, D-dimer PT 12.5 Seconds (9.4-12.1) H 06/13/17 21:12 - VTE Documentation of Mechanical Device: Intermittent pneumatic compression device Consult Discharge Plan - Plan Referrals: Rosemarie Fried CNP [Primary Care Provider] -
[2017-06-17] MEDS: *HR* Heparin 5,000 UNIT/ML VIAL SQ SCH (05:10)
[2017-06-17 07:09] VITALS: BP 161/81
[2017-06-17] MEDS: Insulin DETEMIR 100 UNIT/ML X5UNITS SQ SCH (08:16)
[2017-06-17] MEDS: Nicotine 21 MG PATCH.TD24 TD SCH (08:16)
[2017-06-17] MEDS: Insulin LISPRO 300 UNITS/3 ML VIAL SQ SCH (08:16)
--- NOTE | 2017-06-17 10:41 | Discharge Summary ---
Date of Encounter: 06/17/17 Time of Encounter: 10:39 - Discharge Diagnosis (1) Cerebrovascular accident Priority: Primary Status: Acute Qualifiers: CVA mechanism: thrombosis Precerebral and cerebral artery: anterior cerebral artery Laterality of affected vessel: left Qualified Code(s): I63.322 - Cerebral infarction due to thrombosis of left anterior cerebral artery (2) COPD (chronic obstructive pulmonary disease) Priority: Secondary Status: Chronic Qualifiers: COPD type: chronic bronchitis Chronic bronchitis type: simple Qualified Code(s): J41.0 - Simple chronic bronchitis (3) Diabetes Priority: Secondary Status: Chronic Qualifiers: Diabetes mellitus type: type 2 Diabetes mellitus complication status: with hyperglycemia Diabetes mellitus alf insulin use: with alf use Qualified Code(s): E11.65 - Type 2 diabetes mellitus with hyperglycemia; 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 (4) HTN (hypertension) Priority: Secondary Status: Chronic Qualifiers: Hypertension type: essential hypertension Qualified Code(s): I10 - Essential (primary) hypertension - Discharge Medications Prescriptions: Atorvastatin [Lipitor] 80 mg PO HS #90 tab Clopidogrel [Plavix] 75 mg PO DAILY #60 tab Home Medications: Insulin Glargine,Hum.rec.anlog [Lantus Solostar] 28 unit SQ HS 07/15/15 [History ] Ranitidine HCl [Zantac 75] 75 mg PO DAILY 10/27/16 [History] Atorvastatin [Lipitor] 80 mg PO HS #90 tab 06/17/17 [Rx] Clopidogrel [Plavix] 75 mg PO DAILY #60 tab 06/17/17 [Rx] Levothyroxine [Levothyroxine Sodium] 137 mcg PO 0630 tab 06/17/17 [Rx] Nicotine Patch [Nicoderm] 21 mg TD DAILY 06/17/17 [Rx] Allergies/Adverse Reactions: 3 Allergy/AdvReac Type Severity Reaction Status Date / Time codeine Allergy Mild Nausea Verified 01/11/17 10:36 - Notes to Outpatient Provider 1. Hemoglobin A1c greater than 11. Needs titration of basal insulin for optimal management of her diabetes. 2. Needs outpatient evaluation with Holter monitor and/or loop recorder to evaluate for arrhythmias that can lead to her stroke. Date of admission: 06/14/17 03:47 Primary care physician: Rosemarie Fried CNP Consults: Neurology Discharging clinician: Nahun Mendez Anticipated date of discharge: 06/17/17 - Patient Status Disposition: Transfer Inpatient Rehab Fac Condition: Fair Functional capacity at discharge: uses cane/walker Overall status at discharge: patient is progressing back to baseline - Discharge Instructions Follow Up With: Rosemarie Fried CNP [Primary Care Provider] - - Diet and Activity Activity: as per physical therapy, increase activity as tolerated Diet: diabetic diet, low fat, low cholesterol, low salt diet Hospital course: Ms. Nava is a 66 year old female with a history of diabetes mellitus, hypertension, tobacco abuse who presented to the emergency room due to right- sided weakness and numbness. The patient had a CT scan of the head in the emergency department which revealed left-sided CVA. She was admitted with a diagnosis of cerebrovascular accident. Neurology was consulted and the patient underwent MRI. MRI revealed left cerebrovascular accident involving the left anterior cerebral artery territory. Echocardiogram did not demonstrate any patent foramen ovale or wall motion abnormalities. Carotid Dopplers revealed minimal plaque in the left carotid artery and 45-60% stenosis in the right carotid artery. Neurology recommended optimal medical management for the same. Patient was evaluated by physical therapy and occupational therapy and felt to require inpatient rehabilitation. She currently has a bed and hence, she has been deemed stable to be transferred. The patient was on aspirin prior to presentation. Hence, she is being considered an aspirin failure and she is being placed on Plavix. She was also placed on high-dose statin. She was counseled extensively regarding the need for smoking cessation and has been placed on a nicotine patch. The patient's hemoglobin A1c is greater than 11 and her diabetes is very poorly controlled. Her glipizide has been discontinued as the patient is on basal insulin. Her insulin may need to be adjusted upwards as an outpatient for optimal control of her diabetes. - Time Spent with Patient Total time spent providing and/or coordinating discharge services: Greater than 30 minutes (45 min) - Constitutional Vitals: Temp Pulse Resp BP Pulse Ox 98.2 F 88 16 161/81 97 06/17/17 04:47 06/17/17 07:06 06/17/17 07:06 06/17/17 07:06 06/17/17 07:06 General appearance: Present: A&O X 3, pleasant, no acute distress Exam: Gen.: Lying in bed. No acute distress. Chest: Clear to auscultation bilaterally. No adventitious sounds present. CVS: First and second heart sounds present. No murmurs, rubs or gallops. - VTE Documentation of Mechanical Device: Intermittent pneumatic compression device
--- NOTE | 2017-06-17 10:46 | Physician Discharge Referral ---
[facility] Referral Info Transfer To: F Provider in Charge: Dr. Nahun Mendez Provider in Charge after Transfer: PCP Institutional Level of Care: Skilled - Diagnosis (1) Cerebrovascular accident Priority: Primary Status: Acute (2) COPD (chronic obstructive pulmonary disease) Priority: Secondary Status: Chronic (3) Diabetes Priority: Secondary Status: Chronic (4) HTN (hypertension) Priority: Secondary Status: Chronic Expected Duration of Placement: 2 weeks Prognosis: Fair Aware of Diagnosis: Patient, Family Aware of Prognosis: Patient, Family - Transfer Medications Prescriptions: Atorvastatin [Lipitor] 80 mg PO HS #90 tab Clopidogrel [Plavix] 75 mg PO DAILY #60 tab Home Medications: Insulin Glargine,Hum.rec.anlog [Lantus Solostar] 28 unit SQ HS 07/15/15 [History ] Ranitidine HCl [Zantac 75] 75 mg PO DAILY 10/27/16 [History] Atorvastatin [Lipitor] 80 mg PO HS #90 tab 06/17/17 [Rx] Clopidogrel [Plavix] 75 mg PO DAILY #60 tab 06/17/17 [Rx] Levothyroxine [Levothyroxine Sodium] 137 mcg PO 0630 tab 06/17/17 [Rx] Nicotine Patch [Nicoderm] 21 mg TD DAILY 06/17/17 [Rx] Allergies/Adverse Reactions: 3 Allergy/AdvReac Type Severity Reaction Status Date / Time codeine Allergy Mild Nausea Verified 01/11/17 10:36 - Respiratory Orders Smoking Cessation: Smoking cessation has been advised. For more information, call the [place] Tobacco Quit Line at 1-879-XWNY-NOW. - Ancillary Orders May use pressure relief devices daily prn, May go on EDEN w/family/respon constitution party w /meds at nurse discretion PRN, May consult with Dentist, Terminologist, Research Contracts Supervisor PRN - Advance Directives Code Status: Full Code - Mobility Orders Chair, Ambulate - Rehabiliation Orders Rehab Potential: Good Rehab Orders: Sternal Precautions, ROM Exercises, Evaluation for Physical Therapy, Evaluation for Occupational Therapy, Evaluation for Speech Therapy - Treatments Skin tear care topically daily PRN per policy, May check for fecal impaction rectally daily PRN, Fleet enema rectally every other day PRN cleansing purposes - Diet Orders No Added Salt (ADEN), No Concentrated Sweets, Cardiac CERTIFICATION: I certify that the transfer of the above named patient to an Extended Care Facility is necessary for the continuing treatment of the diagnosis listed. The above information is true and accurate reflection of patient's current condition. Confidential - Redisclosure prohibited without a patient's written consent.
[2017-06-22 07:56] LABS: Ova & Parasite Stain NEGATIVE (Negative)
== END 2017-06-17 11:55 | DRG 66 ==
LOC: 2NENU 20:40 → EMEROO 20:40 → 2NENU 23:43
PROVIDERS: ADMIT Internal Medicine; ATTEND Internal Medicine Sleep Medicine